=== PATIENT | male | born 1970 | race Caucasian/White ===

== ENCOUNTER 2020-03-19 09:20 | Outpatient (CLI) | payer OTHER, SELFPAY ==
--- NOTE | 2020-03-19 11:00 | NEURO_ITS ---
Patient Number: [id number] Impression: # Complains of numbness of upper extremities. Carries the diagnosis of small fiber neuropathy. 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 # Normal needle/EMG exam. # Clinical correlation recommended. Nerve Conduction Studies Anti Sensory Summary Table Stim Site NR Peak (ms) P-T Amp (?V) Site1 Site2 Delta-P (ms) Dist (cm) Gary (m/s) Left Median Anti Sensory (2-3nd Digit) Wrist 2.6 56.3 Wrist 2-3nd Digit 2.6 14.0 54 Wrist 2.7 57.9 Wrist 2-3nd Digit 2.6 14.0 54 Right Median Anti Sensory (2-3nd Digit) Wrist 2.8 42.2 Wrist 2-3nd Digit 2.8 14.0 50 Wrist 2.9 51.7 Wrist 2-3nd Digit 2.8 14.0 50 Left Radial Anti Sensory (Base 1st Digit) Wrist 2.1 26.5 Wrist Base 1st Digit 2.1 0.0 Right Radial Anti Sensory (Base 1st Digit) Wrist 1.9 17.8 Wrist Base 1st Digit 1.9 0.0 Left Ulnar Anti Sensory (5th Digit) Wrist 2.3 28.6 Wrist 5th Digit 2.3 14.0 61 Right Ulnar Anti Sensory (5th Digit) Wrist 2.4 36.6 Wrist 5th Digit 2.4 14.0 58 Motor Summary Table Stim Site NR Onset (ms) O-P Amp (mV) Site1 Site2 Delta-0 (ms) Dist (cm) Gary (m/s) Left Median Motor (Abd Poll Brev) Wrist 2.5 3.0 Elbow Wrist 4.9 29.0 59 Elbow 7.4 3.8 Right Median Motor (Abd Poll Brev) Wrist 2.8 3.0 Elbow Wrist 4.5 27.0 60 Elbow 7.3 3.2 Left Ulnar Motor (Abd Dig Minimi) Wrist 2.7 7.5 A Elbow Wrist 4.8 28.0 58 A Elbow 7.5 5.9 Right Ulnar Motor (Abd Dig Minimi) Wrist 3.0 3.8 A Elbow Wrist 5.4 28.0 52 A Elbow 8.4 3.2 B Elbow Wrist 3.4 18.0 53 B Elbow 6.4 4.3 F Wave Studies NR F-Lat (ms) L-R F-Lat (ms) Left Median (Mrkrs) (Abd Poll Brev) 26.20 0.47 Right Median (Mrkrs) (Abd Poll Brev) 26.67 0.47 Left Ulnar (Mrkrs) (Abd Dig Min) 27.15 0.22 Right Ulnar (Mrkrs) (Abd Dig Min) 26.93 0.22 EMG Side Muscle Nerve Root Ins Act Fibs Amp Dur Recrt Comment Right 1stDorInt Ulnar C8-T1 Nml Nml Nml Nml Nml Right Ext Indicis Radial (Post Int) C7-8 Nml Nml Nml Nml Nml Right Ext Digitorum Radial (Post Int) C7-8 Nml Nml Nml Nml Nml Right BrachioRad Radial C5-6 Nml Nml Nml Nml Nml Right PronatorTeres Median C6-7 Nml Nml Nml Nml Nml Right Abd Poll Brev Median C8-T1 Nml Nml Nml Nml Nml Left 1stDorInt Ulnar C8-T1 Nml Nml Nml Nml Nml Left Ext Indicis Radial (Post Int) C7-8 Nml Nml Nml Nml Nml Left Ext Digitorum Radial (Post Int) C7-8 Nml Nml Nml Nml Nml Left BrachioRad Radial C5-6 Nml Nml Nml Nml Nml Left PronatorTeres Median C6-7 Nml Nml Nml Nml Nml Left Abd Poll Brev Median C8-T1 Nml Nml Nml Nml Nml Right ABD Dig Min Ulnar C8-T1 Nml Nml Nml Nml Nml Left ABD Dig Min Ulnar C8-T1 Nml Nml Nml Nml Nml MTDD
== END 2020-03-19 09:21 | disposition home or self-care (01) ==
LOC: ANHNEURO 09:21
PROVIDERS: PCP Emergency Medicine; Visit Provider Emergency Medicine
DX: G62.9 Polyneuropathy, unspecified (principal); G56.21 Lesion of ulnar nerve, right upper limb
CPT/HCPCS: 95886; 95911

== ENCOUNTER 2021-11-24 00:25 | Day surgery (SDC) | payer OTHER, SELFPAY ==
[2021-11-11 13:43] VITALS: BMI 32.2
[2021-11-24] MEDS: LACTATED RINGERS 1,000 ML 150 ML IV CONT (07:59)
--- NOTE | 2021-11-24 08:08 | WPDANESEPPF ---
Anes - Initial Pre Proc Eval Procedure: Operation Date: 11/24/21 09:00 Proposed Procedures p Screening Colonoscopy - Elroy Brambila MD Date/Time: 11/24/21 08:08 Surgeon: Elroy Brambila MD Pre Op Diagnosis: neoplasm screening Patient Data Age: 51 Gender: M Height: 1.68 m Weight: 91.2 kg Allergies Allergy/AdvReac Type Severity Reaction Status Date / Time No Known Allergies Allergy Verified 11/24/21 07:46 Home Medications Medication Instructions Recorded Confirmed Type pregabalin 300 mg capsule 300 mg PO BID #60 cap 06/02/21 11/24/21 Rx Patient hx anesthesia problems: none Family hx anesthesia problems: none Results Review: All pre-operative results and documents have been reviewed as part of the pre-operative evaluation. [facility] Past Medical History Medical History Arthritis Broken collarbone Chicken pox Claustrophobia Colon cancer screening Diarrhea Hernia Meningitis Neuropathy Urinary frequency Vertigo Wears glasses Surgical History Surgical History H/O elbow surgery History of neck surgery S/P hernia surgery Family History Family History Other Arthritis Brain cancer Cerebrovascular accident Diabetes mellitus Family history of cardiovascular disease High cholesterol Hypertension Social History Social History Smoking status: Never smoker Alcohol intake: never Substance use type: does not use Living arrangements: alone Spiritual care concerns: No Anes - Eval Final PreProcedure Day of Procedure 11/24/21 08:08 Patient weight: obese Heart: regular rate and rhythm Lungs: clear to auscultation Airway: Mallampati scale class II Neurological: alert and oriented Last oral intake: >/= 8 hours ASA classification: II Emergent: no Anesthetic plan: proceed Anesthesia type and monitoring: general GIVS and standard monitoring Results Review: All pre-operative results and documents have been reviewed as part of the pre-operative evaluation. Informed Consent: The patient's anesthetic plan and its attendant risks and benefits were discussed with the patient/family/POA. Questions were solicited and answers provided to the satisfaction of the patient/family/POA.
--- NOTE | 2021-11-24 08:55 | PM.HPGS ---
History of Present Illness History of Present Illness Consent: Risks, benefits, and alternatives have been discussed and questions answered. Patient agrees to proceed with procedure. Chief complaint: neoplasm screening Narrative: Juan Alberto Mays is a 51 year old male here for first screening colonoscopy Review of Systems Constitutional: Constitutional: Denies headache(s) and Denies weakness Eyes: Eyes: Denies blurry vision ENT: Reports Normal hearing present, Denies headache(s) and Denies neck pain Cardiovascular: Cardiovascular: Denies chest pain and Denies dyspnea Respiratory: Respiratory: Denies dyspnea Gastrointestinal: Gastrointestinal: Reports no additional gastrointestinal complaints Genitourinary: Genitourinary: Denies dysuria Musculoskeletal: Musculoskeletal: Denies neck pain Integumentary/Breasts: Skin/Breast: Denies dry skin Neurologic: Reports Normal hearing present, Denies headache(s) and Denies weakness Psychiatric: Psychiatric: Denies anxiety Endocrine: Endocrine: Denies change in body appearance Hematologic/Lymphatic: Hematologic/Lymphatic: Denies easy bleeding Allergic/Immunologic: Allergic/Immunologic: Denies urticaria PMFSH Past Medical History Medical History Arthritis Broken collarbone Chicken pox Claustrophobia Colon cancer screening Diarrhea Hernia Meningitis Neuropathy Urinary frequency Vertigo Wears glasses Surgical History Surgical History H/O elbow surgery History of neck surgery S/P hernia surgery Family History Family History Other Arthritis Brain cancer Cerebrovascular accident Diabetes mellitus Family history of cardiovascular disease High cholesterol Hypertension Social History Social History Smoking status: Never smoker Alcohol intake: never Substance use type: does not use Living arrangements: alone Spiritual care concerns: No Meds Home Medications and Allergies Home Medications Medication Instructions Recorded Confirmed Type pregabalin 300 mg capsule 300 mg PO BID #60 cap 06/02/21 11/24/21 Rx Allergies Allergy/AdvReac Type Severity Reaction Status Date / Time No Known Allergies Allergy Verified 11/24/21 07:46 Exam Const: General: comfortable and no acute distress HENMT: General nose exam: Normal nares present Eyes: General: appearance normal, both eyes and all related structures Neck: Neck: no JVD Resp: Auscultation: clear to auscultation bilaterally Cardio: Rate: regular rate Rhythm: regular rhythm GI: Inspection: non-distended GI Palp: Yes Soft to palpation Skin: General skin exam: normal color Neuro: General: gait normal Speech: normal speech Extrem: General: normal to inspection Psych: Mental Status: mental status grossly normal Assessment and Plan Assessment and plan (1) Colon cancer screening: Code(s): Z12.11 - Encounter for screening for malignant neoplasm of colon Status: Acute Assessment and Plan: colonoscopy
[2021-11-24 09:21] VITALS: BP 122/77; PULSE 71; RESP 20; O2SAT 93
[2021-11-24 09:31] VITALS: BP 112/79; PULSE 65; RESP 30; O2SAT 98
[2021-11-24 09:41] VITALS: BP 121/79; PULSE 62; RESP 17; O2SAT 99
== END 2021-11-24 10:03 | disposition home or self-care (01) ==
PROVIDERS: PCP Emergency Medicine; Visit Provider Internal Medicine Gastroenterology
PROC: 0DJD8ZZ Inspection of Lower Intestinal Tract, Via Natural or Artificial Opening Endoscopic (ICD-10-PCS; CPT 45378; principal; 2021-11-24 09:00)
DX: Z12.11 Encounter for screening for malignant neoplasm of colon (principal); K62.1 Rectal polyp; K57.30 Diverticulosis of large intestine without perforation or abscess without bleeding; K64.8 Other hemorrhoids; M19.90 Unspecified osteoarthritis, unspecified site; G62.9 Polyneuropathy, unspecified; E66.9 Obesity, unspecified; Z68.32 Body mass index [BMI] 32.0-32.9, adult
CPT/HCPCS: 45385; 88305; J2704; J7120

== ENCOUNTER 2022-07-03 08:15 | Outpatient (CLI) | payer OTHER, SELFPAY ==
[2022-07-03 08:50] LABS: LDL Cholesterol Direct 109 mg/dL
[2022-07-03 08:53] LABS: Alanine Aminotransferase 46 U/L (6-50); Albumin Level 4.4 g/dL (3.5-5.1); Alkaline Phosphatase 75 U/L (38-126); Anion Gap 8 mmol/L (8-16); Aspartate Amino Transferase 34 U/L (17-59); Bilirubin,Total 0.6 mg/dL (0.2-1.3); Blood Urea Nitrogen 17 mg/dL (9-20); Calcium 8.6 mg/dL (8.4-10.2); Carbon Dioxide 24 mmol/L (22-30); Chloride 107 mmol/L (98-107); Cholesterol 182 mg/dL (0-200); Estimated Glomerular Filt Rate > 60; Glucose 103 mg/dL (65-110); HDL Direct 30 mg/dL; Potassium 4.1 mmol/L (3.4-5.0); Sodium 139 mmol/L (137-145); Triglycerides 374 mg/dL (<150)
[2022-07-03 09:08] LABS: Prostate Specific Antigen 0.7 ng/mL (< OR = 4.0)
== END 2022-07-03 08:16 | disposition home or self-care (01) ==
PROVIDERS: PCP Emergency Medicine; Visit Provider Emergency Medicine
DX: E78.5 Hyperlipidemia, unspecified (principal); Z12.5 Encounter for screening for malignant neoplasm of prostate
CPT/HCPCS: 36415; 80053; 80061; 84153; G0103

== ENCOUNTER 2023-02-23 08:01 | Emergency (ER) | payer OTHER, SELFPAY ==
[2023-02-23 08:18] VITALS: BP 128/76; PULSE 88; RESP 18; TEMP 36.9; O2SAT 99
--- NOTE | 2023-02-23 08:31 | ED.URI ---
HPI - URI/Sore Throat General Chief Complaint: Upper Respiratory Infection Stated Complaint: cold symptoms Time Seen by Provider: 02/23/23 08:22 Source: patient and RN notes reviewed Mode of arrival: ambulatory Limitations: no limitations History of Present Illness HPI Narrative: Presents today with a 4 day history of cough, congestion, headache, sore, left ear clogging. Denies fever. He has been taking NyQuil and cough medicine without much relief. Denies history of asthma or COPD. He does have history of seasonal allergies, but does not currently take anything for them. He is a nonsmoker. Related Data Allergies Allergy/AdvReac Type Severity Reaction Status Date / Time No Known Allergies Allergy Verified 02/23/23 08:17 Review of Systems Review of Systems: CONSTITUTIONAL: Denies body aches, fever, chills, or sweats. EYES: Denies visual changes, redness, or discharge. ENT: Denies rhinorrhea. + congestion, sore throat, left ear clogging CARDIOVASCULAR: Denies chest pain, palpitations, or edema. RESPIRATORY: Denies dyspnea.+ cough GASTROINTESTINAL: Denies abdominal pain, nausea, vomiting, or diarrhea. GENITOURINARY: Denies dysuria or hematuria. SKIN: Denies rash, itching, or wounds. MUSCULOSKELETAL: Denies back pain, joint pain, or myalgia. NEUROLOGIC: Denies numbness, tingling, or weakness.+ headache PSYCH: Denies depression or anxiety. [facility] Past Medical History Medical History Arthritis Broken collarbone Chicken pox Claustrophobia Colon cancer screening Diarrhea Hernia Meningitis Neuropathy Urinary frequency Vertigo Wears glasses Surgical History Surgical History H/O elbow surgery History of neck surgery History of ventral hernia repair 01/2017- Ventral hernia repair with Parietex mesh Family History Family History Other Arthritis Brain cancer Cerebrovascular accident Diabetes mellitus Family history of cardiovascular disease High cholesterol Hypertension Social History Social History Smoking status: Never smoker Alcohol intake: never Substance use type: does not use Living arrangements: with family Occupation/Education: occupation 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 Please see nursing chart for further information. There is no relevant family history pertinent to the presenting complaint Exam Narrative: GENERAL: Well-appearing, well-nourished, and in no acute distress. HEAD: Normocephalic, atraumatic. EYES: EOMI. No redness or drainage. Conjunctivae normal. ENT: Mucous membranes pink and moist. Nares congested. No rhinorrhea. Right ear with serous effusion. Left TM erythematous and bulging with purulent material. Throat normal. Uvula midline. NECK: Normal AROM. Supple. No lymphadenopathy. CHEST: No respiratory distress. Clear to auscultation. Harsh cough noted HEART: Regular rate and rhythm. No murmur appreciated. Normal peripheral pulses. EXTREMITIES: Normal range of motion. No edema. SKIN: Warm, dry, no rash. Capillary refill normal. Normal skin turgor. NEURO: No focal deficits. Alert and oriented x3. Gait steady. PSYCH: Normal affect. No signs of depression or anxiety. Course Course Level of Care: Express Care Visit Vital Signs Vital signs: Vital Signs Temperature 98.5 F 02/23/23 08:18 Pulse Rate 88 02/23/23 08:18 Respiratory Rate 18 02/23/23 08:18 Blood Pressure 128/76 02/23/23 08:18 Pulse Oximetry 99 02/23/23 08:18 Oxygen Delivery Room Air 02/23/23 08:18 Temperature 98.5 F
== END 2023-02-23 08:41 | disposition home or self-care (01) ==
PROVIDERS: Emergency Provider Nurse Practitioner; PCP Emergency Medicine
DX: J40 Bronchitis, not specified as acute or chronic (principal); J06.9 Acute upper respiratory infection, unspecified; H66.002 Acute suppurative otitis media without spontaneous rupture of ear drum, left ear; M19.90 Unspecified osteoarthritis, unspecified site; Z09 Encounter for follow-up examination after completed treatment for conditions other than malignant neoplasm; Z86.61 Personal history of infections of the central nervous system
CPT/HCPCS: 99213; G0463

== ENCOUNTER 2023-09-22 07:37 | Emergency (ER) | payer OTHER, SELFPAY ==
[2023-09-22] VITALS (16 sets, daily range): BP systolic 121–151; BP diastolic 69–100; PULSE 63–73; RESP 12–19; TEMP 36.2; O2SAT 95–100
--- NOTE | ~2023-09-22 | CT_ITS ---
EXAMINATION: CT abdomen pelvis wo con DATE: 09/22/2023 10:31 INDICATION: Left flank pain and hematuria TECHNIQUE: Computed tomography (CT) of the abdomen and pelvis was performed without intravenous contr ast. The dose-length product was 365.79 mGy-cm. Automated exposure control and iterative reconstructi on technique were employed. COMPARISON: CT dated 01/12/2012 FINDINGS: There is dependent atelectasis. Heart size normal. No significant vascular abnormality. No lymphadenopathy. Fatty infiltration of the liver. Nonobstructing bilateral renal stones. There is a 3 mm distal left ureteral stone with mild hydronephrosis. Colonic diverticulosis without evidence for diverticulitis. Nonobstructive bowel gas pattern. No abnormal pelvic masses or fluid collections. No free air or free fluid. IMPRESSION: 1. Distal left ureteral stone just proximal to the UVJ measuring 3 mm. Mild left hydronephrosis. 2: Nonobstructing bilateral nephrolithiasis. 3: Fatty infiltration of the liver. Reviewed, dictated and finalized at location L. [facility] IMPRESSION: 1. Distal left ureteral stone just proximal to the UVJ measuring 3 mm. Mild lef t hydronephrosis. 2: Nonobstructing bilateral nephrolithiasis. 3: Fatty infiltration of the liver.
--- NOTE | 2023-09-22 08:33 | ED.GENADULT ---
HPI - General Adult General Chief complaint: Urogenital-Male Stated complaint: penile burning/abd pain/nausea Time Seen by Provider: 09/22/23 07:53 History of Present Illness HPI narrative: 53-year-old male with history of kidney stone approximately 8 years ago on the right present to the emergency department for evaluation of left-sided flank pain that radiates to his left lower quadrant and to his scrotum. Patient states the pain started this morning. Patient does report associated nausea. Patient states the pain does feel similar to his previous kidney stone. Related Data Allergies Allergy/AdvReac Type Severity Reaction Status Date / Time No Known Allergies Allergy Verified 03/02/23 16:03 Review of Systems Review of Systems: All systems reviewed & are unremarkable except as noted in HPI and below PMFSH Past Medical History Medical History Arthritis Broken collarbone Chicken pox Claustrophobia Colon cancer screening Diarrhea Hernia Meningitis Neuropathy Urinary frequency Vertigo Wears glasses Surgical History Surgical History H/O elbow surgery History of neck surgery History of ventral hernia repair 01/2017- Ventral hernia repair with Parietex mesh Family History Family History Other Arthritis Brain cancer Cerebrovascular accident Diabetes mellitus Family history of cardiovascular disease High cholesterol Hypertension Social History Social History (Updated 03/02/23 @ 16:23 by Hanna Guzman MA) Smoking status: Never smoker Alcohol intake: never Substance use type: does not use Lack of Transportation: No Lack of Food: Never True Current Housing: I Have Housing Concerned About Future Housing: No Difficulty Paying Gas/Electric Bills: No Difficulty Paying for Meds: No Currently Unemployed: No Education: Master's Degree or Higher Difficulty w/ Childcare or Family Care: No Living arrangements: with family Occupation/Education: occupation 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 HEAD: normocephalic, atraumatic. EYES: PERRLA/EOMI, conjunctivae clear. NOSE: Normal no drainage EARS:TMS clear with good light reflex. THROAT: Pharynx clear, no exudate. NECK: Supple. No adenopathy, no masses. RESPIRATORY: Airway patent, respirations nonlabored. Clear to auscultation bilaterally, no rales, rhonchi, wheezing. CARDIOVASCULAR: Regular rate and rhythm without murmurs rubs or gallops. ABDOMINAL: Soft, nontender, nondistended, normal bowel sounds MUSCULOSKELETAL: Moves all extremities. Strength/ROM intact, No edema, No calf tenderness. NEURO: Alert. Cranial nerves II through XII intact. Grossly intact SKIN: Warm, dry. Normal Color Course Course Emergency Course: 53-year-old male presenting ED for evaluation of left-sided flank pain. Patient is afebrile with no leukocytosis stable hemoglobin of 16.1. No significant abnormalities on his CMP UA did show evidence of hematuria with greater than [address] scan was ordered to evaluate for ureteral calculi and patient does have a 3 mm ureteral calculi just proximal to the UVJ. On re-evaluation patient does feel improved. Patient was updated on the plan for treatment for home and reports a close follow-up with primary care physician and with Urology. Patient was also educated on reasons to return to the emergency department. All questions concerns were addressed patient was well-appearing at time of discharge. Vital Signs Vital signs: Vital Signs Temperature 97.2 F L 09/22/23 07:41 Pulse Rate 71 09/22/23 07:41 Respiratory Rate 16 09/22/23 07:41 Blood Pressure 121/84 09/22/23 07:41
[2023-09-22 08:44] LABS: Basophils Absolute Auto 0.1 K/mm3 (0.0-0.1); Basophils Percent Auto 0.8 % (0.2-1.2); Eosinophils Absolute Auto 0.3 K/mm3 (0-0.3); Hematocrit 44.6 % (42.0-52.0); Hemoglobin 16.1 g/dL (14.0-18.0); Immature Granulocyte Absolute 0.06 K/mm3 (0.00-0.031); Immature Granulocyte Percent A 0.8 % (0-0.5); Lymphocytes Absolute Auto 2.04 K/mm3 (0.9-3.2); Lymphocytes Percent Auto 28.3 % (18.3-44.2); Mean Corpuscular HGB Conc 36.1 g/dl (32-36); Mean Corpuscular Hemoglobin 31.6 pg (26-34); Mean Corpuscular Volume 87.5 fl (80-100); Mean Platelet Volume 8.6 fl (7.4-10.4); Monocytes Absolute Auto 0.7 K/mm3 (0.1-0.6); Monocytes Percent Auto 9.1 % (2.6-8.5); Neutrophils Absolute Auto 4.1 K/mm3 (1.3-6.7); Platelet Count Result 170 k/mm3 (150-375); Red Cell Distribution Width 13.1 % (11.5-14.5); White Blood Count 7.2 K/mm3 (4.5-10.0)
[2023-09-22] MEDS: SODIUM CHLORIDE 0.9% IV 1,000 ML 999 ML IV CONT (08:47)
[2023-09-22] MEDS: ONDANSETRON INJ 4 MG/2 ML VIAL IV PUSH (08:47)
[2023-09-22] MEDS: HYDROmorphone HCL INJ (*CRX) 1 MG/ML SYR 0.5 MG IV PUSH (08:48)
[2023-09-22 08:59] LABS: Alanine Aminotransferase 46 U/L (6-50); Albumin Level 4.4 g/dL (3.5-5.1); Alkaline Phosphatase 73 U/L (38-126); Anion Gap 9 mmol/L (8-16); Aspartate Amino Transferase 35 U/L (17-59); Bilirubin,Total 0.7 mg/dL (0.2-1.3); Blood Urea Nitrogen 20 mg/dL (9-20); Calcium 9.5 mg/dL (8.4-10.2); Carbon Dioxide 27 mmol/L (22-30); Chloride 105 mmol/L (98-107); Estimated CRCL calculation 112 ml/min; Estimated Glomerular Filt Rate > 60; Glucose 114 mg/dL (65-110); Potassium 4.4 mmol/L (3.4-5.0); Sodium 141 mmol/L (137-145)
[2023-09-22 09:53] LABS: Appearance Urine Clear (Clear); Bacteria Urine None Seen /hpf; Bilirubin Urine Negative (Negative); Blood Urine 3+ (Negative); Color Urine Yellow (Yellow); Glucose Urine UA Negative (Negative); Ketones Urine Negative (Negative); Leukocyte Esterase Ur Negative LEU/UL (Negative); Nitrate Urine Negative (Negative); Non Pathogenic Casts 0-2; Protein Urine Negative (Negative); RBC Urine >100 /hpf (0-2); Specific Grav Ur 1.019 (1.001-1.035); Squamous Epithelial Cell Urine None seen /hpf (Few); WBC Urine 0-5 /hpf; pH Urine 6.5 (5.0-9.0)
[2023-09-22 10:08] LABS: Add Urine Microscopic? YES
[2023-09-22] MEDS: TAMSULOSIN HCL 0.4 MG CAPSULE PO (11:05)
[2023-09-22] MEDS: KETOROLAC 15 MG/ML VIAL (*BKC) IV PUSH (11:25)
== END 2023-09-22 11:32 | disposition home or self-care (01) ==
PROVIDERS: Emergency Provider Emergency Medicine; PCP Emergency Medicine
DX: N13.2 Hydronephrosis with renal and ureteral calculous obstruction (principal); M19.90 Unspecified osteoarthritis, unspecified site; G62.9 Polyneuropathy, unspecified; K76.0 Fatty (change of) liver, not elsewhere classified
CPT/HCPCS: 36415; 74176; 80053; 81001; 85025; 96361; 96374; 96375; 99284; A9270; J1170; J1885; J2405; J7030

== ENCOUNTER 2024-01-23 11:07 | Emergency (ER) | payer OTHER, SELFPAY ==
--- NOTE | ~2024-01-23 | XR_ITS ---
EXAMINATION: XR chest 2V 01/23/2024 12:44 INDICATION: Chest pain PROCEDURE: 2 view chest COMPARISON: 08/16/2013 FINDINGS: The lungs are clear. The cardiomediastinal silhouette is within normal limits. There are no pleural effusions. There is no pneumothorax suspected. IMPRESSION: 1: NO ACUTE CARDIOPULMONARY DISEASE. Reviewed, dictated and finalized at location B.
[2024-01-23 11:19] VITALS: BP 131/89; PULSE 81; RESP 18; TEMP 36.2; O2SAT 99
--- NOTE | 2024-01-23 11:53 | ECG_ITS ---
SEE SCANNED COPY FOR CONFIRMED REPORT. MTDD
[2024-01-23 12:05] LABS: Basophils Absolute Auto 0.1 K/mm3 (0.0-0.1); Basophils Percent Auto 0.7 % (0.2-1.2); Eosinophils Absolute Auto 0.2 K/mm3 (0-0.3); Eosinophils Percent Auto 2.3 % (0-4.4); Hematocrit 46.7 % (42.0-52.0); Hemoglobin 16.6 g/dL (14.0-18.0); Immature Granulocyte Absolute 0.06 K/mm3 (0.00-0.031); Immature Granulocyte Percent A 0.7 % (0-0.5); Lymphocytes Absolute Auto 2.34 K/mm3 (0.9-3.2); Lymphocytes Percent Auto 26.7 % (18.3-44.2); Mean Corpuscular HGB Conc 35.5 g/dl (32-36); Mean Corpuscular Hemoglobin 31.6 pg (26-34); Mean Platelet Volume 8.5 fl (7.4-10.4); Monocytes Absolute Auto 0.8 K/mm3 (0.1-0.6); Monocytes Percent Auto 8.9 % (2.6-8.5); Neutrophils Absolute Auto 5.3 K/mm3 (1.3-6.7); Neutrophils Percent Auto 60.7 % (45.5-73.1); Platelet Count Result 180 k/mm3 (150-375); Red Blood Count 5.25 M/mm3 (4.6-6.20); Red Cell Distribution Width 13.2 % (11.5-14.5); White Blood Count 8.8 K/mm3 (4.5-10.0)
[2024-01-23 12:18] LABS: Alanine Aminotransferase 49 U/L (6-50); Albumin Level 4.5 g/dL (3.5-5.1); Alkaline Phosphatase 77 U/L (38-126); Anion Gap 6 mmol/L (4-12); Aspartate Amino Transferase 35 U/L (17-59); Bilirubin,Total 0.8 mg/dL (0.2-1.3); Blood Urea Nitrogen 20 mg/dL (9-20); Calcium 9.6 mg/dL (8.4-10.2); Carbon Dioxide 25 mmol/L (22-30); Chloride 107 mmol/L (98-107); Estimated CRCL calculation 114 ml/min; Estimated Glomerular Filt Rate > 60; Glucose 96 mg/dL (65-110); Lipase 76 U/L (23-300); Sodium 138 mmol/L (137-145)
[2024-01-23 12:22] LABS: INR 0.9; Prothrombin Time 12.8 Seconds (11.1-14.7)
[2024-01-23 12:23] LABS: Partial Thromboplastin Time 29.6 Seconds (22.3-36.8)
[2024-01-23 12:37] LABS: Troponin I < 0.012 ng/mL (0.000-0.034)
[2024-01-23 14:41] VITALS: BP 114/83; PULSE 67; RESP 12; TEMP 36.4; O2SAT 100
[2024-01-23 14:43] VITALS: O2SAT 97
[2024-01-23 14:47] VITALS: PULSE 69
--- NOTE | 2024-01-23 14:53 | ECG_ITS ---
SEE SCANNED COPY FOR CONFIRMED REPORT. MTDD
[2024-01-23 15:22] LABS: Troponin I < 0.012 ng/mL (0.000-0.034)
[2024-01-23 15:31] VITALS: BP 124/86; PULSE 74; RESP 14; O2SAT 97
[2024-01-23] MEDS: ASPIRIN 81 MG CHEWABLE TABLET 324 MG PO (15:31)
--- NOTE | 2024-01-23 15:41 | ED.CHESTPAIN ---
HPI - Chest Pain General Chief Complaint: Chest Pain Stated Complaint: chest pain Time Seen by Provider: 01/23/24 14:34 History of Present Illness HPI narrative: 53-year-old male present to the emergency department for evaluation chest pressure. Patient states that last night he was having some episodes of chest pressure and this persisted through the day today. Patient fell pressure developed into chest pain while he was EN route to the emergency department. Patient suspects his last stress test was approximately 10 years ago. Patient denies any prior history of IN. Patient denies any history of PE DVT, patient is not on any home placement therapy patient denies any prior history of cancer. patient denies any prior history of hypertension, high cholesterol or diabetes. Related Data Allergies Allergy/AdvReac Type Severity Reaction Status Date / Time No Known Allergies Allergy Verified 01/23/24 14:40 Review of Systems Review of Systems: All systems reviewed & are unremarkable except as noted in HPI and below PMFSH Past Medical History Medical History Arthritis Broken collarbone Chicken pox Claustrophobia Colon cancer screening Diarrhea Hernia Meningitis Neuropathy Urinary frequency Vertigo Wears glasses Surgical History Surgical History H/O elbow surgery History of neck surgery History of ventral hernia repair 01/2017- Ventral hernia repair with Parietex mesh Family History Family History Other Arthritis Brain cancer Cerebrovascular accident Diabetes mellitus Family history of cardiovascular disease High cholesterol Hypertension Social History Social History (Updated 03/02/23 @ 16:23 by Hanna Guzman MA) Smoking status: Never smoker Alcohol intake: never Substance use type: does not use Lack of Transportation: No Lack of Food: Never True Current Housing: I Have Housing Concerned About Future Housing: No Difficulty Paying Gas/Electric Bills: No Difficulty Paying for Meds: No Currently Unemployed: No Education: Master's Degree or Higher Difficulty w/ Childcare or Family Care: No Living arrangements: with family Occupation/Education: occupation 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 HEAD: normocephalic, atraumatic. EYES: PERRLA/EOMI, conjunctivae clear. NOSE: Normal no drainage EARS:TMS clear with good light reflex. THROAT: Pharynx clear, no exudate. NECK: Supple. No adenopathy, no masses. RESPIRATORY: Airway patent, respirations nonlabored. Clear to auscultation bilaterally, no rales, rhonchi, wheezing. CARDIOVASCULAR: Regular rate and rhythm without murmurs rubs or gallops. ABDOMINAL: Soft, nontender, nondistended, normal bowel sounds MUSCULOSKELETAL: Moves all extremities. Strength/ROM intact, No edema, No calf tenderness. No reproducible chest wall tenderness to palpation NEURO: Alert. Cranial nerves II through XII intact. Good gait. Good coordination SKIN: Warm, dry. Normal Color Course Vital Signs Vital signs: Vital Signs Temperature 97.1 F L 01/23/24 11:19 Pulse Rate 81 01/23/24 11:19 Respiratory Rate 18 01/23/24 11:19 Blood Pressure 131/89 01/23/24 11:19 Pulse Oximetry 99 01/23/24 11:19 Oxygen Delivery Room Air 01/23/24 11:19 Temperature 97.8 F 01/23/24 17:15 Pulse Rate 75 01/23/24 17:15 Respiratory Rate 16 01/23/24 17:15 Blood Pressure 124/88 01/23/24 17:15 Pulse Oximetry 95 01/23/24 17:15 Oxygen Delivery Room Air 01/23/24 14:43 MDM - Chest Pain MDM Narrative Medical decision making narrative: 53-year-old male presenting to the ED for evaluation bilateral chest
[2024-01-23 16:02] LABS: D Dimer < 0.27 ug/mL (<0.48)
[2024-01-23] MEDS: BELLADONNA ALK/PHENOB ELIX 10 ML, MAG HYDROX/ALUMINUM HYD/SIMETH 30 ML, LIDOCAINE HCL 2... PO (16:50)
[2024-01-23] MEDS: KETOROLAC 15 MG/ML VIAL (*BKC) IV PUSH (16:52)
[2024-01-23 17:15] VITALS: BP 124/88; PULSE 75; RESP 16; TEMP 36.6; O2SAT 95
== END 2024-01-23 17:15 | disposition home or self-care (01) ==
PROVIDERS: Student in an Organized Health Care Education/Training Program; Emergency Provider Emergency Medicine; PCP Emergency Medicine
DX: R07.89 Other chest pain (principal); M19.90 Unspecified osteoarthritis, unspecified site; G62.9 Polyneuropathy, unspecified
CPT/HCPCS: 36415; 71046; 80053; 83690; 84484; 85025; 85380; 85610; 85730; 93005; 96374; 99284; A9270; J1885

== ENCOUNTER 2024-05-15 08:17 | Outpatient (CLI) | payer OTHER, SELFPAY ==
[2024-05-15 08:46] LABS: Alanine Aminotransferase 34 U/L (6-50); Albumin Level 4.1 g/dL (3.5-5.1); Alkaline Phosphatase 67 U/L (38-126); Anion Gap 8 mmol/L (4-12); Aspartate Amino Transferase 29 U/L (17-59); Bilirubin,Total 0.9 mg/dL (0.2-1.3); Blood Urea Nitrogen 19 mg/dL (9-20); Calcium 9.1 mg/dL (8.4-10.2); Carbon Dioxide 28 mmol/L (22-30); Chloride 104 mmol/L (98-107); Cholesterol 170 mg/dL (0-200); Estimated Glomerular Filt Rate > 60; Glucose 107 mg/dL (65-110); HDL Direct 32 mg/dL; Potassium 4.1 mmol/L (3.4-5.0); Sodium 140 mmol/L (137-145); Triglycerides 231 mg/dL (<150)
[2024-05-15 08:57] LABS: LDL Cholesterol Direct 112 mg/dL
[2024-05-15 09:16] LABS: Prostate Specific Antigen 0.6 ng/mL (< OR = 4.0)
[2024-05-15 10:30] LABS: Vitamin D 25 Hydroxy 20.7 ng/mL
== END 2024-05-15 08:18 | disposition home or self-care (01) ==
LOC: ANHLAB 08:18
PROVIDERS: PCP Emergency Medicine; Visit Provider Emergency Medicine
DX: E78.5 Hyperlipidemia, unspecified (principal); E55.9 Vitamin D deficiency, unspecified; Z12.5 Encounter for screening for malignant neoplasm of prostate
CPT/HCPCS: 36415; 80053; 80061; 82306; 84153; G0103

== ENCOUNTER 2024-06-09 11:13 | Outpatient (CLI) | payer OTHER, SELFPAY ==
--- NOTE | ~2024-06-09 | XR_ITS ---
EXAMINATION: XR lumbar spine 2-3V DATE: 06/09/2024 11:31 INDICATION: Low back and right hip pain TECHNIQUE: Anteroposterior and lateral views of the lumbar spine, and cone-down lateral view of the l umbosacral junction were obtained. COMPARISON: 01/12/2012 FINDINGS: 8 degrees lumbar dextrocurvature. Sagittal alignment is normal. Lumbar vertebral body heights are nor mal. Lumbar disc heights are normal with very small degenerative endplate osteophytes. There is mild disc height loss at T9-T10 and T11-T12. Mild lumbar facet osteoarthritis. Sacrum and bilateral sacral ized joints are unremarkable. Normal bowel gas pattern. IMPRESSION: 1. 8 degrees lumbar dextrocurvature with minimal spondylosis. Reviewed, dictated and finalized at location A.
== END 2024-06-09 11:14 | disposition home or self-care (01) ==
LOC: ANHIMG 11:14
PROVIDERS: PCP Emergency Medicine; Visit Provider Emergency Medicine
DX: M41.86 Other forms of scoliosis, lumbar region (principal); M54.50 Low back pain, unspecified; M25.551 Pain in right hip
CPT/HCPCS: 72100

== ENCOUNTER 2024-08-16 08:01 | Emergency (ER) | payer OTHER, SELFPAY ==
--- NOTE | 2024-08-16 08:08 | ED_ITS ---
HPI - Wound/Laceration General Stated Complaint: Lower chemical Burn Time Seen by Provider: 08/16/24 08:08 Source: patient Mode of arrival: ambulatory Limitations: no limitations History of Present Illness HPI narrative: Patient is a 54-year-old male who presents with redness and burning to scrotum. Patient states at 3:00 a.m. he woke up with a burning sensation. 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 Patient put neosporin on and ice. Denies any swelling, open wounds Related Data Home Medications Medication Instructions Recorded Confirmed temazepam 15 mg capsule 15 mg PO QHS 05/21/24 08/16/24 Allergies Allergy/AdvReac Type Severity Reaction Status Date / Time No Known Allergies Allergy Verified 08/16/24 08:30 Review of Systems Review of Systems: All systems reviewed & are unremarkable except as noted in HPI and below Constitutional: Constitutional: Denies body ache(s), Denies chills, Denies fatigue, Denies fever(s), Denies headache(s), Denies malaise and Denies weakness Eyes: Eyes: Denies blurry vision, Denies irritation and Denies loss of vision ENT: Denies otalgia, Denies headache(s), Denies nasal discharge, Denies sinus pain and Denies sore throat Cardiovascular: Cardiovascular: Denies chest pain, Denies irregular heart rhythm and Denies dyspnea Respiratory: Respiratory: Denies dyspnea Gastrointestinal: Gastrointestinal: Denies abdominal pain, Denies melena, Denies hematochezia, Denies diarrhea, Denies nausea and Denies vomiting Musculoskeletal: Musculoskeletal: Denies back pain, Denies myalgias and Denies arthralgias Integumentary/Breasts: Skin/Breast: Denies pruritus, Reports erythema and Denies rash Neurologic: Denies headache(s), Denies loss of vision and Denies weakness Psychiatric: Psychiatric: Reports no additional psychiatric complaints Endocrine: Endocrine: Denies fatigue PMFSH Past Medical History Medical History Acute suppur left otitis media w/o spontan rupture tympanic membrane Arthritis Broken collarbone Chicken pox Claustrophobia Colon cancer screening Diarrhea Diastasis recti Hernia Idiopathic peripheral neuropathy Meningitis Neuropathy Urinary frequency Ventral hernia without obstruction or gangrene Vertigo Wears glasses Surgical History Surgical History H/O elbow surgery History of neck surgery History of ventral hernia repair 01/2017- Ventral hernia repair with Parietex mesh Family History Family History Other Arthritis Brain cancer Cerebrovascular accident Diabetes mellitus Family history of cardiovascular disease High cholesterol Hypertension Social History Social History Smoking status: Never smoker Alcohol intake: never Substance use type: does not use Do You Feel Safe in your Home?: Yes Lack of Transportation: No Lack of Food: Never True Current Housing: I Have Housing Concerned About Future Housing: No Difficulty Paying Gas/Electric Bills: No Difficulty Paying for Meds: No Currently Unemployed: No Education: Master's Degree or Higher Difficulty w/ Childcare or Family Care: No Living arrangements: with family Occupation/Education: occupation 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 There is no relevant family history pertinent to the presenting complaint. Exam Const: General: cooperative, healthy appearing, comfortable, no acute distress and well nourished Nutritional Appearance: well nourished Orientation/consciousness: patient oriented x3 Limitations: no limitations HENMT: Head: normal to inspection, normocephalic and atraumatic Ears: hearing grossly normal bilaterally and external ears normal Face/Nose/Sinus: Normal external nose present, normal facial exam and face symmetric Face and sinus: normal facial exam and face symmetric Mouth: Yes lip normal Eyes: General: appearance normal, both eyes and all related structures Alignment and Position: alignment normal and position normal Periorbital: periorbital findings normal Eyelids: eyelids normal Pupils: Equal, round and reactive pupils present EOM: EOMs intact bilaterally Neck: Neck: normal visual inspection, full ROM and supple Chest: Chest palpation & inspection: normal inspection of the chest Resp: Effort & Inspection: normal respiratory effort and able to speak in complete sentences Auscultation: clear to auscultation bilaterally Cardio: Rate: regular rate Rhythm: regular rhythm Heart sounds: S1 normal heart sound present and S2 normal heart sound present GI: Inspection: normal to inspection : Scrotum: no ecchymosis, not edematous, erythematous diffuse, no scrotal swelling and no ulcerations Skin: General skin exam: normal color, no rashes or lesions noted, erythema, no fluctuance, no induration and No lesion Neuro: General: patient oriented x3 and moves all extremities Cranial nerves: Yes Equal, round and reactive pupils present Speech: normal speech Gait exam (Neuro): Normal gait present Extrem: General: normal to inspection, full ROM and no edema Psych: Appearance: grossly normal and well kempt Mental Status: mental status grossly normal Speech and movement: Normal speech and movement present Affect: normal affect Attitude: cooperative Thought process: Normal thought process present Course Course Emergency Course: Patient is aware of diagnosis, understands and agrees to treatment plan. Anticipatory guidance given. Patient agrees to follow-up as directed and is aware of reasons to seek care at the emergency department. Portions of this record may have been created with voice recognition software Level of Care: Express Care Visit Vital Signs Vital signs: Reviewed MDM - Wound/Laceration MDM Narrative Medical decision making narrative: Exam findings show no acute concerns or changes; patient is non-toxic appearing and is in no distress.? Patient is appropriate for outpatient treatment and follow-up. Discharge instructions reviewed with patient, as well as provided in writing per nursing staff. The instructions also include specific and strict return/GO TO THE ER as well as f/u information. All questions have been answered, and the patient deny any further questions with discharge and discharge plan. Differential Diagnosis Differential diagnosis: Likely abrasion and other (Contact dermatitis, chemical burn) Medical Records Attestation: I reviewed the patient's medical records. Discharge Plan Discharge Clinical Impression: Contact dermatitis Qualifiers: Contact dermatitis type: unspecified Contact dermatitis trigger: detergents Qualified Code(s): L24.0 - Irritant contact dermatitis due to detergents Patient Disposition: Home, Self-Care Condition: Stable Instructions: Contact Dermatitis (ED) Additional Instructions: Wash the area with mild soap and cool water only. Soaking in cool water. Use petroleum jelly or Aquaphor and avoid wearing tight underwear. To relieve burning, place a cool washcloth or some ice over the area. Follow up with primary care provider or seek ER if you have significant scrotal swelling, open wounds or severe pain. Prescriptions: No Action temazepam 15 mg capsule 15 mg PO QHS pregabalin [Lyrica] 300 mg capsule 300 mg PO BID Qty: 120 4RF zolpidem [Ambien] 5 mg tablet 5 mg PO QHS PRN (Reason: insomnia) Qty: 30 0RF Follow-up/Referrals: Noah Omalley MD [Primary Care Provider] - 3 Days Stand Alone Forms: Work/School Release IP Time of Disposition: 08:34
[2024-08-16 08:15] VITALS: BP 128/83; PULSE 99; RESP 18; TEMP 36.8; O2SAT 98
== END 2024-08-16 08:38 | disposition home or self-care (01) ==
PROVIDERS: Emergency Provider Nurse Practitioner Family; PCP Emergency Medicine
DX: L24.0 Irritant contact dermatitis due to detergents (principal); M19.90 Unspecified osteoarthritis, unspecified site; G60.9 Hereditary and idiopathic neuropathy, unspecified; Z86.61 Personal history of infections of the central nervous system
CPT/HCPCS: 99213; G0463

== ENCOUNTER 2025-06-03 07:06 | Outpatient (CLI) | payer OTHER, SELFPAY ==
--- NOTE | ~2025-06-03 | MR_ITS ---
EXAMINATION: MR lumbar spine wo con DATE: 06/03/2025 07:40 INDICATION: Low back pain. Right leg pain. TECHNIQUE: Magnetic resonance imaging (MRI) of the lumbar spine was performed without intravenous contrast. COMPARISON: Lumbar spine radiographs 06/09/2024 FINDINGS: There is 3 degrees dextrocurvature lumbar spine. There is mild chronic anterior wedging of T11-L1 vertebral bodies. There are Schmorl's nodes at multiple levels. Intervertebral disc heights are normal. The distal spinal cord signal intensity is normal. The conus medullaris is at T12-L1. The following disc levels are specifically discussed: L1-L2: The disc does not extend beyond the endplate margin. There is mild bilateral facet joint osteoarthritis. There is no neural foraminal stenosis. There is no central canal stenosis. L2-L3: The disc does not extend beyond the endplate margin. There is moderate bilateral facet joint osteoarthritis. There is no neural foraminal stenosis. There is no central canal stenosis. L3-L4: The disc does not extend beyond the endplate margin. There is severe bilateral facet joint osteoarthritis. There is no neural foraminal stenosis. There is no central canal stenosis. L4-L5: The disc does not extend beyond the endplate margin. There is severe bilateral facet joint osteoarthritis. There is no neural foraminal stenosis. There is no central canal stenosis. L5-S1: There is a central protrusion. There is severe bilateral facet joint osteoarthritis. There is mild bilateral neural foraminal stenosis. There is mild central canal stenosis. IMPRESSION: 1. Mild lumbar spondylosis. Reviewed, dictated and finalized at location E. IMPRESSION: 1. Mild lumbar spondylosis.
== END 2025-06-03 07:07 | disposition home or self-care (01) ==
LOC: MICIMG 07:07
PROVIDERS: PCP Emergency Medicine; Visit Provider Emergency Medicine
DX: M54.30 Sciatica, unspecified side (principal); M47.896 Other spondylosis, lumbar region
CPT/HCPCS: 72148

== ENCOUNTER 2025-06-20 08:48 | Outpatient (CLI) | payer OTHER, SELFPAY ==
--- OUTSIDE RECORDS SUMMARY | 2025-06-20 09:02 | XMS_ITS | Clinical Summary ---
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 Active fexofenadine-pse udoephedrine ([facility]) 60-120 MG tablet Take 1 tablet by mouth 2 (two) times daily. 20 tablet 09/13/2018 Active Family History Medical History Relation Comments Hypertension Father Diabetes Mother Hypertension Mother Relation Status Comments Father Mother Social History Tobacco Use Types Packs/Day Years Used Date Smoking Tobacco: Never Smokeless Tobacco: Never Alcohol Use Standard Drinks/Week Comments No 0 (1 standard drink = 0.6 oz pur e alcohol) AUDIT-C Answer Date Recorded Frequency of Alcohol Consumption Never 09/13/2018 Average Number of Drinks Not on file 018 Frequency of Binge Drinking Not on file 08/26 Sex and Gender Information Value Date Recorded Sex Assigned at Not on file 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 Gender Identity Not on file Sexual Orientation Not on file Last Filed Vital Signs Vital Sign Reading Time Taken Comments Blood Pressure 126/81 09/13/2018 8:29 AM WET PAN MIXER Pulse 78 09/13/2018 8:29 AM WET PAN MIXER Temperature 36.5 C (97.7 F) 09/13/2018 8:29 AM WET PAN MIXER Respiratory Rate 20 09/13/2018 8:29 AM WET PAN MIXER Oxygen Saturation 96% 09/13/2018 8:29 AM WET PAN MIXER Inhaled Oxygen Concentration - - Weight 85.7 kg (189 lb) 09/13/2018 8:29 AM WET PAN MIXER Height 167 cm (5' 5.75) 09/13/2018 8:29 AM WET PAN MIXER Body Mass Index 30.74 09/13/2018 8:29 AM WET PAN MIXER Plan of Treatment Health Maintenance Due Date Last Done Comments Colorectal Cancer Screening Colonoscopy (10 Years) 1969 Annual Physical 1972 Hepatitis C 1987 DTaP, Tdap and Td Vaccines ( 1 - Tdap) 1988 Hepatitis B Vaccines (1 of 3 - 19+ 3-dose series) 1988 Pneumococcal Vaccine: 50+ Ye ars (1 of 1 - PCV) 2019 Zoster Vaccines (1 of 2) 2019 COVID-19 Vaccine (1 - 2023-2 5 season) 2025 Meningococcal B Vaccine Aged Out No l onger eligible based on patient's age to complete this topic Meningococcal Vaccine Aged Out No krista shira eligible based on patient's age to complete this topic RSV Immunizations Under 20 Months Aged Out No longer eligible based on patient's age to complete this topic Insurance Care Teams Cooler Worker Relationship Specialty Start Date End Date New Referring, Provider PCP - General UNKNOWN PHYSICIAN SPECIALTY 09/13/18
--- OUTSIDE RECORDS SUMMARY | 2025-06-20 09:02 | XMS_ITS | Clinical Summary ---
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 Gender Identity Not on file Sexual Orientation Not on file Plan of Treatment Health Maintenance Due Date Last Done Comments Hepatitis C Virus (HCV) Screening 1969 TdaP Immunization 1969 Hepatitis B Immunization (1 of 3 - 19+ 3-dose series) 1988 Cologuard 2014 Colonoscopy 2014 Colorectal Cancer Screening 2014 Immunochemical Fecal Occult Blood 2014 Pneumococcal Immunization (5 0+ years) (1 of 1 - PCV) 2019 Zoster Immunization (1 of 2) 2019 SARS-COV-2 Immunization (1 - season) 2024 Influenza Immunization (#1) 2025 09/08/2019 Respiratory Syncytial Virus (RSV) Immunization (Adult) (1 - 1-dose 75+ series) 2044 Human Papillomavirus (HPV) Immunization Aged Out No longer eligible b ased on patient's age to complete this topic Meningococcal Immunization (ACWY) Aged Out No longer eligible based on patient's age to complete this topic Rotavirus Immunization Aged Out No lo nger eligible based on patient's age to complete this topic
[2025-06-20 09:39] LABS: Alanine Aminotransferase 55 U/L (6-50); Albumin Level 4.2 g/dL (3.5-5.1); Alkaline Phosphatase 76 U/L (38-126); Anion Gap 8 mmol/L (4-12); Aspartate Amino Transferase 41 U/L (17-59); Bilirubin,Total 0.9 mg/dL (0.2-1.3); Blood Urea Nitrogen 26 mg/dL (9-20); Calcium 8.9 mg/dL (8.4-10.2); Carbon Dioxide 27 mmol/L (22-30); Chloride 105 mmol/L (98-107); Cholesterol 194 mg/dL (0-200); Estimated Glomerular Filt Rate > 60; Glucose 116 mg/dL (65-110); HDL Direct 33 mg/dL; Potassium 4.1 mmol/L (3.4-5.0); Sodium 140 mmol/L (137-145); Total Protein 7.0 g/dL (6.3-8.2); Triglycerides 200 mg/dL (<150)
== END 2025-06-20 08:49 | disposition home or self-care (01) ==
LOC: ANHLAB 08:50
PROVIDERS: PCP Emergency Medicine; Visit Provider Emergency Medicine
DX: E78.5 Hyperlipidemia, unspecified (principal); E55.9 Vitamin D deficiency, unspecified
CPT/HCPCS: 36415; 80053; 80061; 82306

== ENCOUNTER 2025-07-11 10:33 | Observation (INO) | payer OTHER, SELFPAY ==
[2025-07-11] VITALS (15 sets, daily range): BP systolic 110–152; BP diastolic 72–94; PULSE 78–89; RESP 14–27; TEMP 36.2–36.4; O2SAT 98–99; BMI 35.3
--- NOTE | ~2025-07-11 | CT_ITS ---
CT abdomen pelvis w con INDICATION:bloody diarrhea . COMPARISON: None. TECHNIQUE: Axial images of the abdomen and pelvis were obtained following infusion of 100 mL Isovue 300. Dose optimization technique was utilized. FINDINGS: The lung bases are clear. Fatty infiltration of the liver is noted. No intrahepatic mass or ductal dilatation is evident. The gallbladder is unremarkable. The pancreas and spleen are normal in appearance. The adrenal glands are symmetric in size. The kidneys demonstrate symmetric uptake and excretion of contrast. No cystic mass is evident. There is no solid mass. There is no hydronephrosis. The stomach and bowel loops are unremarkable. The appendix is normal in appearance. There is colonic diverticulosis without evidence of acute diverticulitis. The bladder and rectum are normal. No free intraperitoneal fluid or air is evident. There is no significant retroperitoneal lymphadenopathy. The aorta, visceral vessels and renal arteries demonstrate normal caliber and patency. The lower thoracic and lumbar vertebrae are in normal alignment. IMPRESSION: No acute abnormality is noted in the abdomen and pelvis. Colonic diverticulosis without evidence of acute diverticulitis. All CT scans at this facility are performed using low dose modulation techniques as appropriate to perform exam including the following: automated exposure control; use of iterative reconstruction technique; adjustment of the mA and/or kV according to patient size (this includes techniques or standardized protocols for targeted exams where dose is matched to indication/reason for exam). Reviewed, dictated and finalized at location S. IMPRESSION: No acute abnormality is noted in the abdomen and pelvis. Colonic diverticulosis without evidence of acute diverticulitis. All CT scans at this facility are performed using low dose modulation techniqu es as appropriate to perform exam including the following: automated exposure c ontrol; use of iterative reconstruction technique; adjustment of the mA and/or kV according to patient size (this includes techniques or standardized protocol s for targeted exams where dose is matched to indication/reason for exam).
--- NOTE | 2025-07-11 12:23 | ED.GIBLEED ---
HPI - GI Bleed General Chief complaint: GI Bleed <Jeanne Miller PA-C - Last Filed: 07/11/25 19:20> Stated complaint: diarrhea <Jeanne Miller PA-C - Last Filed: 07/11/25 19:20> Time Seen by Provider: 07/11/25 12:23 <Jeanne Miller PA-C - Last Filed: 07/11/25 19:20> Focused HPI: This is a 55 year old male that presents to the ER for blood in the stool. Ongoing over the last couple of weeks. Reports last night he started to have abdominal pain, diarrhea. Reports bright red blood in the stool as well as dark stool. Reports having bowel movement every hour ongoing since last night. Denies fevers. He does not take a blood thinner. No previous history of GI bleeding. Reports last colonoscopy was about [address] Brambila. GENERAL: Well-appearing, well-nourished, and in no acute distress. HEAD: Normocephalic, atraumatic. CHEST: Clear to auscultation. ?No respiratory distress. HEART: Regular rate and rhythm.? NEURO: ?Alert and oriented x3. Patient screened in triage and initial orders placed.? ?Additional care and disposition to be based upon?diagnostic testing and treatment. <Jeanne Miller PA-C - Last Filed: 07/11/25 19:20> History of Present Illness HPI Narrative: as per mse <Ghanshyam Georges III, DO - Last Filed: 07/11/25 17:40> Related Data Allergies/Adverse reactions: Allergies Allergy/AdvReac Type Severity Reaction Status Date / Time No Known Allergies Allergy Verified 07/11/25 17:24 <Jeanne Miller PA-C - Last Filed: 07/11/25 19:20> Review of Systems Review of Systems: All systems reviewed & are unremarkable except as noted in HPI and below <Ghanshyam Georges III, DO - Last Filed: 07/11/25 17:40> PMFSH Past Medical History Medical History: Medical History Diastasis recti Sinusitis Diastasis recti Ventral hernia without obstruction or gangrene Idiopathic peripheral neuropathy Acute suppur left otitis media w/o spontan rupture tympanic membrane Urinary frequency Diarrhea Wears glasses Vertigo Claustrophobia Colon cancer screening Hernia Chicken pox Neuropathy Arthritis Meningitis Broken collarbone <PRISCILLA Mata Last Filed: 07/11/25 19:20> Surgical History Surgical History: Surgical History History of ventral hernia repair 01/2017- Ventral hernia repair with Parietex mesh H/O elbow surgery History of neck surgery <PRISCILLA Mata Last Filed: 07/11/25 19:20> Family History Family History: Family History Other Arthritis Brain cancer Cerebrovascular accident Diabetes mellitus Family history of cardiovascular disease High cholesterol Hypertension <PRISCILLA Mata Last Filed: 07/11/25 19:20> Social History Social History: Social History (Updated 07/08/25 @ 14:54 by Hanna Guzman MA) Smoking status: Never smoker Alcohol intake: never Substance use type: does not use Do You Feel Safe in your Home?: Yes Lack of Transportation: No Lack of Food: Never True Current Housing: I Have Housing Concerned About Future Housing: No Difficulty Paying Gas/Electric Bills: No Difficulty Paying for Meds: No Currently Unemployed: No Education: Master's Degree or Higher Difficulty w/ Childcare or Family Care: No Living arrangements: with family Occupation/Education: occupation 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[employer] Spiritual care concerns: No <Jeanne Miller PA-C - Last Filed: 07/11/25 19:20> Exam Const: General: healthy appearing and no acute distress <Ghanshyam Georges III DO - Last Filed: 07/11/25 17:40> Nutritional Appearance: well nourished <Ghanshyam Georges III DO - Last Filed: 07/11/25 17:40> Orientation/consciousness: patient oriented x3 <Ghanshyam Georges III DO - Last Filed: 07/11/25 17:40> Limitations: no limitations <Ghanshyam Georges III DO - Last Filed: 07/11/25 17:40> Eyes: EOM: EOMs intact bilaterally <Ghanshyam Jf Georges III, DO - Last Filed: 07/11/25 17:40> Resp: Effort & Inspection: normal respiratory effort <Ghanshyam Jf Georges III, DO - Last Filed: 07/11/25 17:40> Auscultation: clear to auscultation bilaterally <Ghanshyam Jf Georges III, DO - Last Filed: 07/11/25 17:40> Cardio: Rate: regular rate <Ghanshyam Jf Georges III, DO - Last Filed: 07/11/25 17:40> Rhythm: regular rhythm <Ghanshyam Jf Georges III, DO - Last Filed: 07/11/25 17:40> GI: GI Palp: Yes Soft to palpation and No Tenderness to palpation present (GI) <Ghanshyam Jf Georges III, DO - Last Filed: 07/11/25 17:40> Auscultation: normal bowel sounds <Ghanshyam Jf Georges III, DO - Last Filed: 07/11/25 17:40> Rectal Exam: normal sphincter tone, heme positive stool and No hemorrhoids <Ghanshyam Jf Georges III, DO - Last Filed: 07/11/25 17:40> Skin: General skin exam: normal color <Ghanshyam Jf Georges III, DO - Last Filed: 07/11/25 17:40> Wounds: no wounds <Ghanshyam Jf Georges III, DO - Last Filed: 07/11/25 17:40> Neuro: General: patient oriented x3, moves all extremities and no focal motor deficits <Ghanshyam Jf Georges III, DO - Last Filed: 07/11/25 17:40> Speech: normal speech <Ghanshyam Jf Georges III, DO - Last Filed: 07/11/25 17:40> Extrem: General: normal to inspection and no clubbing, cyanosis or edema <Ghanshyam Jf Georges III, DO - Last Filed: 07/11/25 17:40> Psych: Mental Status: mental status grossly normal <Ghanshyam Jf Georges III, DO - Last Filed: 07/11/25 17:40> Affect: normal affect <Ghanshyam Jf Georges III, DO - Last Filed: 07/11/25 17:40> Attitude: cooperative <Ghanshyam Jf Georges III, DO - Last Filed: 07/11/25 17:40> Course Vital Signs Vital signs: Vital Signs Temperature 97.1 F L 07/11/25 10:34 Pulse Rate 79 07/11/25 10:34 Respiratory Rate 18 07/11/25 10:34 Blood Pressure 127/72 07/11/25 10:34 Pulse Oximetry 98 07/11/25 10:34 Temperature 97.6 F 07/11/25 14:51 Pulse Rate 78 07/11/25 19:04 Respiratory Rate 20 07/11/25 19:04 Blood Pressure 146/88 H 07/11/25 19:04 Pulse Oximetry 99 07/11/25 19:04 <JOHNIE Mata-C - Last Filed: 07/11/25 19:20> Vital Signs Temperature 97.1 F L 07/11/25 10:34 Pulse Rate 79 07/11/25 10:34 Respiratory Rate 18 07/11/25 10:34 Blood Pressure 127/72 07/11/25 10:34 Pulse Oximetry 98 07/11/25 10:34 Temperature 97.6 F 07/11/25 14:51 Pulse Rate 78 07/11/25 19:04 Respiratory Rate 20 07/11/25 19:04 Blood Pressure 146/88 H 07/11/25 19:04 Pulse Oximetry 99 07/11/25 19:04 <Ghanshyam Jf Georges III, DO - Last Filed: 07/11/25 17:40> MDM - GI Bleed MDM Narrative Medical decision making narrative: Pt presents with brbpr and lower abdominal cramping since last night. pt gross bright red blood in stool here and at home. will get labs and CT. labs stable VSS. CT no acute findings. discussed with Dr De Guzman and agrees to scope in morning can prep tonight. discussed with Ness Cha and agrees to admit. <Ghanshyam Jf Georges III, DO - Last Filed: 07/11/25 17:40> Differential Diagnosis Differential diagnosis: Likely hemorrhoids, infectious diarrhea, Lower gastrointestinal hemorrhage, melena and anal fissure <Ghanshyam Jf Georges III, DO - Last Filed: 07/11/25 17:40> Lab Data Result diagrams: 07/11/25 18:19 07/11/25 14:53 <Jeanne Miller PA-C - Last Filed: 07/11/25 19:20> Labs: Lab Results 07/11/25 Range/Units 14:53 WBC 10.4 H (4.5-10.0) K/mm3 RBC 4.94 (4.6-6.20) M/mm3 Hgb 15.4 (14.0-18.0) g/dL Hct 43.5 (42.0-52.0) % MCV 88.1 (80-100) fl MCH 31.2 (26-34) pg MCHC 35.4 (32-36) g/dl RDW 13.9 (11.5-14.5) % Plt Count 164 (150-375) k/mm3 MPV 8.6 (7.4-10.4) fl Immature Gran % (Auto) 0.4 (0-0.5) % Neut % (Auto) 72.3 (45.5-73.1) % Lymph % (Auto) 16.8 L (18.3-44.2) % [place] % (Auto) 7.9 (2.6-8.5) % Eos % (Auto) 2.0 (0-4.4) % Baso % (Auto) 0.6 (0.2-1.2) % Lymph # (Auto) 1.75 (0.9-3.2) K/mm3 [place] # (Auto) 0.8 H (0.1-0.6) K/mm3 Eos # (Auto) 0.2 (0-0.3) K/mm3 Baso # (Auto) 0.1 (0.0-0.1) K/mm3 Abs Immat Gran (auto) 0.04 H (0.00-0.031) K/mm3 Absolute Neuts (auto) 7.6 H (1.3-6.7) K/mm3 Absolute Nucleated RBC 0.000 (0.0-0.012) K/mm3 Nucleated RBC % 0.0 (0.0-0.2) % PT 14.0 (11.1-14.7) Seconds INR 1.1 APTT 30.2 (22.3-36.8) Seconds Sodium 136 L (137-145) mmol/L Potassium 3.9 (3.4-5.0) mmol/L Chloride 101 (98-107) mmol/L Carbon Dioxide 27 (22-30) mmol/L Anion Gap 8 (4-12) mmol/L BUN 19 (9-20) mg/dL Creatinine 0.77 (0.7-1.3) mg/dL Estim Creat Clear Calc 103 ml/min Estimated GFR > 60 (59 - ) Glucose 93 (65-110) mg/dL Calcium 8.6 (8.4-10.2) mg/dL Total Bilirubin 1.0 (0.2-1.3) mg/dL AST 44 (17-59) U/L ALT 55 H (6-50) U/L Alkaline Phosphatase 80 (38-126) U/L Total Protein 7.0 (6.3-8.2) g/dL Albumin 4.3 (3.5-5.1) g/dL Urine Color Yellow (Yellow) Urine Appearance Clear (Clear) Urine pH 5.5 (5.0-9.0) Ur Specific [place] 1.043 H (1.001-1.035) Urine Protein Negative (Negative) mg/dL Urine Glucose (UA) Negative (Negative) mg/dL Urine Ketones Trace H (Negative) mg/dL Ur Blood (Man) Negative (Negative) Urine Nitrate Negative (Negative) Urine Bilirubin Negative (Negative) Urine Urobilinogen 0.2 (<2.0) mg/dL Leukocyte Esterase Rfl Negative (Negative) HOLLI/UL Blood Type A Negative Antibody Screen Negative <Jeanne Miller PA-C - Last Filed: 07/11/25 19:20> Lab Results 07/11/25 Range/Units 14:53 WBC 10.4 H (4.5-10.0) K/mm3 RBC 4.94 (4.6-6.20) M/mm3 Hgb 15.4 (14.0-18.0) g/dL Hct 43.5 (42.0-52.0) % MCV 88.1 (80-100) fl MCH 31.2 (26-34) pg MCHC 35.4 (32-36) g/dl RDW 13.9 (11.5-14.5) % Plt Count 164 (150-375) k/mm3 MPV 8.6 (7.4-10.4) fl Immature Gran % (Auto) 0.4 (0-0.5) % Neut % (Auto) 72.3 (45.5-73.1) % Lymph % (Auto) 16.8 L (18.3-44.2) % [place] % (Auto) 7.9 (2.6-8.5) % Eos % (Auto) 2.0 (0-4.4) % Baso % (Auto) 0.6 (0.2-1.2) % Lymph # (Auto) 1.75 (0.9-3.2) K/mm3 [place] # (Auto) 0.8 H (0.1-0.6) K/mm3 Eos # (Auto) 0.2 (0-0.3) K/mm3 Baso # (Auto) 0.1 (0.0-0.1) K/mm3 Abs Immat Gran (auto) 0.04 H (0.00-0.031) K/mm3 Absolute Neuts (auto) 7.6 H (1.3-6.7) K/mm3 Absolute Nucleated RBC 0.000 (0.0-0.012) K/mm3 Nucleated RBC % 0.0 (0.0-0.2) % PT 14.0 (11.1-14.7) Seconds INR 1.1 APTT 30.2 (22.3-36.8) Seconds Sodium 136 L (137-145) mmol/L Potassium 3.9 (3.4-5.0) mmol/L Chloride 101 (98-107) mmol/L Carbon Dioxide 27 (22-30) mmol/L Anion Gap 8 (4-12) mmol/L BUN 19 (9-20) mg/dL Creatinine 0.77 (0.7-1.3) mg/dL Estim Creat Clear Calc 103 ml/min Estimated GFR > 60 (59 - ) Glucose 93 (65-110) mg/dL Calcium 8.6 (8.4-10.2) mg/dL Total Bilirubin 1.0 (0.2-1.3) mg/dL AST 44 (17-59) U/L ALT 55 H (6-50) U/L Alkaline Phosphatase 80 (38-126) U/L Total Protein 7.0 (6.3-8.2) g/dL Albumin 4.3 (3.5-5.1) g/dL Urine Color Yellow (Yellow) Urine Appearance Clear (Clear) Urine pH 5.5 (5.0-9.0) Ur Specific [place] 1.043 H (1.001-1.035) Urine Protein Negative (Negative) mg/dL Urine Glucose (UA) Negative (Negative) mg/dL Urine Ketones Trace H (Negative) mg/dL Ur Blood (Man) Negative (Negative) Urine Nitrate Negative (Negative) Urine Bilirubin Negative (Negative) Urine Urobilinogen 0.2 (<2.0) mg/dL Leukocyte Esterase Rfl Negative (Negative) HOLLI/UL Blood Type A Negative Antibody Screen Negative <Ghanshyam Georges III, DO - Last Filed: 07/11/25 17:40> Critical Care Time Critical Care Time Critical Care Time: No <Jeanne Miller PA-C - Last Filed: 07/11/25 19:20> Discharge Plan Discharge Clinical Impression: GI (gastrointestinal bleed) Qualifiers: GI bleed type/associated pathology: unspecified gastrointestinal hemorrhage type Qualified Code(s): K92.2 - Gastrointestinal hemorrhage, unspecified <Jeanne Miller PA-C - Last Filed: 07/11/25 19:20> Patient Disposition: Still a Patient <PRISCILLA Mata Last Filed: 07/11/25 19:20> Condition: Stable <Jeanne Miller PA-C - Last Filed: 07/11/25 19:20>
[2025-07-11 15:03] LABS: Hematocrit 43.5 % (42.0-52.0); Hemoglobin 15.4 g/dL (14.0-18.0); Immature Granulocyte Percent A 0.4 % (0-0.5); Lymphocytes Absolute Auto 1.75 K/mm3 (0.9-3.2); Mean Corpuscular HGB Conc 35.4 g/dl (32-36); Mean Corpuscular Hemoglobin 31.2 pg (26-34); Mean Corpuscular Volume 88.1 fl (80-100); Nucleated Red Blood Cells Absolute Auto 0.000 K/mm3 (0.0-0.012); Nucleated Red Blood Cells Perc 0.0 % (0.0-0.2); Platelet Count Result 164 k/mm3 (150-375); Red Blood Count 4.94 M/mm3 (4.6-6.20); White Blood Count 10.4 K/mm3 (4.5-10.0)
[2025-07-11 15:05] LABS: Add Urine Microscopic? NO; Appearance Urine Clear (Clear); Glucose Urine UA Negative (Negative); Leukocyte Esterase Ur Negative LEU/UL (Negative); Nitrate Urine Negative (Negative); Specific Grav Ur 1.043 (1.001-1.035)
[2025-07-11 15:16] LABS: Alanine Aminotransferase 55 U/L (6-50); Albumin Level 4.3 g/dL (3.5-5.1); Alkaline Phosphatase 80 U/L (38-126); Anion Gap 8 mmol/L (4-12); Aspartate Amino Transferase 44 U/L (17-59); Bilirubin,Total 1.0 mg/dL (0.2-1.3); Blood Urea Nitrogen 19 mg/dL (9-20); Calcium 8.6 mg/dL (8.4-10.2); Carbon Dioxide 27 mmol/L (22-30); Chloride 101 mmol/L (98-107); Estimated CRCL calculation 103 ml/min; Estimated Glomerular Filt Rate > 60; Glucose 93 mg/dL (65-110); Potassium 3.9 mmol/L (3.4-5.0); Sodium 136 mmol/L (137-145); Total Protein 7.0 g/dL (6.3-8.2)
[2025-07-11 15:24] LABS: INR 1.1; Partial Thromboplastin Time 30.2 Seconds (22.3-36.8); Prothrombin Time 14.0 Seconds (11.1-14.7)
--- NOTE | 2025-07-11 17:26 | PC.NURSE ---
Pt to ed rm 4. Pt reports he's had several bloody stools while in waiting room.
--- OUTSIDE RECORDS SUMMARY | 2025-07-11 18:05 | XMS_ITS | Clinical Summary ---
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 Gender Identity Not on file Sexual Orientation Not on file Last Filed Vital Signs Vital Sign Reading Time Taken Comments Blood Pressure 126/81 09/13/2018 8:29 AM PRIVATE BRANCH EXCHANGE REPAIRER Pulse 78 09/13/2018 8:29 AM PRIVATE BRANCH EXCHANGE REPAIRER Temperature 36.5 C (97.7 F) 09/13/2018 8:29 AM PRIVATE BRANCH EXCHANGE REPAIRER Respiratory Rate 20 09/13/2018 8:29 AM PRIVATE BRANCH EXCHANGE REPAIRER Oxygen Saturation 96% 09/13/2018 8:29 AM PRIVATE BRANCH EXCHANGE REPAIRER Inhaled Oxygen Concentration - - Weight 85.7 kg (189 lb) 09/13/2018 8:29 AM PRIVATE BRANCH EXCHANGE REPAIRER Height 167 cm (5' 5.75) 09/13/2018 8:29 AM PRIVATE BRANCH EXCHANGE REPAIRER Body Mass Index 30.74 09/13/2018 8:29 AM PRIVATE BRANCH EXCHANGE REPAIRER Plan of Treatment Health Maintenance Due Date [...] Vaccine (1 - 2023-2 5 season) 2025 Influenza Adult (#1) 2025 Meningococcal B Vaccine Aged Out No l onger eligible based on patient's age to complete this topic Meningococcal Vaccine Aged Out No krista shira eligible based on patient's age to complete this topic RSV Immunizations Under 20 Months Aged Out No longer eligible based on patient's age to complete this topic Insurance Care Teams Test Borer Relationship Specialty Start Date End Date New Referring, Provider PCP - General UNKNOWN PHYSICIAN SPECIALTY 09/13/18
--- OUTSIDE RECORDS SUMMARY | 2025-07-11 18:05 | XMS_ITS | Clinical Summary ---
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
--- NOTE | 2025-07-11 18:07 | P.HP_ITS ---
H&P: HPI History of Present Illness Date/Time: 07/11/25 18:07 Chief Complaint: Bright red blood per rectum Narrative: 55-year-old male past medical history of neuropathy, claustrophobia, and vertigo presents the hospital with bright red blood per rectum and abdominal pain. Patient states that he has had some blood in his stool for couple weeks however last night he started having large amounts of bright red blood. Patient has cramp like pain. He states his bowel movements are now blood clots without any stool present. No history of GI bleed. Patient denies nausea vomiting fevers chills recent weight loss or other symptoms. Lab work in the ED shows WBC of 10.4, hemoglobin of 15.4, INR 1.1, sodium of 136, AST of 55, UA is negative for infection. CT abdomen pelvis show Colonic diverticulosis without evidence of acute diverticulitis. Review of Systems Review of Systems: 12 systems were reviewed and are negativ e except for as per HPI. COUNTS INCLUDE 234 BEDS AT THE [facility] Past Medical History Medical History Diastasis recti Sinusitis Diastasis recti Ventral hernia without obstruction or gangrene Idiopathic peripheral neuropathy Acute suppur left otitis media w/o spontan rupture tympanic membrane Urinary frequency Diarrhea Wears glasses Vertigo Claustrophobia Colon cancer screening Hernia Chicken pox Neuropathy Arthritis Meningitis Broken collarbone Surgical History Surgical History History of ventral hernia repair 01/2017- Ventral hernia repair with Parietex mesh H/O elbow surgery History of neck surgery Family History Family History Other Arthritis Brain cancer Cerebrovascular accident Diabetes mellitus Family history of cardiovascular disease High cholesterol Hypertension Social History Social History (Updated 07/08/25 @ 14:54 by Hanna Guzman MA) Smoking status: Never smoker Alcohol intake: never Substance use: never Substance use type: does not use Do You Feel Safe in your Home?: Yes Lack of Transportation: No Lack of Food: Never True Current Housing: I Have Housing Concerned About Future Housing: No Difficulty Paying Gas/Electric Bills: No Difficulty Paying for Meds: No Currently Unemployed: No Education: Master's Degree or Higher Difficulty w/ Childcare or Family Care: No Living arrangements: with family Occupation/Education: occupation 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[employer] Spiritual care concerns: No Meds Home Medications and Allergies Home Medications ?Medication ?Instructions ?Recorded ?Confirmed ?Type pregabalin 300 mg capsule (Lyrica) 200 mg PO HS 07/11/25 History trazodone 50 mg tablet 50 mg PO QHS insomnia 07/11/25 History Allergies Allergy/AdvReac Type Severity Reaction Status Date / Time No Known Allergies Allergy Verified 07/11/25 22:09 Vital Signs Vital Signs - 24 hr 07/11/25 10:34 07/11/25 14:51 07/11/25 17:13 Temperature 97.1 F L 97.6 F Pulse Rate 79 83 83 Respiratory Rate 18 17 22 H Blood Pressure 127/72 125/78 Pulse Oximetry 98 98 98 07/11/25 17:15 Temperature Pulse Rate 89 Respiratory Rate 14 Blood Pressure 110/82 Pulse Oximetry 98 Exam Narrative: General: well appearing, appears stated age. HEENT: normocephalic, atraumatic. Mucous membranes moist. EOMI, PERRLA, bilateral sclera anicteric, no conjunctival injection. Neck supple without JVD, lymphadenopathy, or bruit. Respiratory: clear to ascultation bilaterally. No rales/rhonic/wheezes. Cardiovascular: Regular rate and rhythm, normal S1-S2 upon ascultation. No murmurs, rubs, or clicks. PMI is nondisplaced, capillary refill less than 3 second. Abdomen: Obese, Soft, round, no pulsatile masses, nondistended and nontender. No rebound, no guarding. Bowel sounds present to all four quadrants. No high pitch or tinkling sounds, resonant to percussion. Extremities: No cyanosis, clubbing, or edema present. Pulses are palpable 2/2. Active ROM to all four extremities. Neuro: Alert and orientated x 4. PERRLA. Cranial nerves 2-12 intact without focal deficit. Skin: Warm, dry, and intact, without rash, erythema, or lesion. Psych: pleasant, cooperative, normal speech, normal affect, no hallucinations, no dysarthia H&P: Results Labs Labs: Short CBC 07/11/25 Range/Units 14:53 WBC 10.4 H (4.5-10.0) K/mm3 Hgb 15.4 (14.0-18.0) g/dL Hct 43.5 (42.0-52.0) % Plt Count 164 (150-375) k/mm3 BMP 07/11/25 14:53 Sodium 136 L Potassium 3.9 Chloride 101 Carbon Dioxide 27 BUN 19 Creatinine 0.77 Glucose 93 Calcium 8.6 Liver Function 07/11/25 Range/Units 14:53 Total Bilirubin 1.0 (0.2-1.3) mg/dL AST 44 (17-59) U/L ALT 55 H (6-50) U/L Alkaline Phosphatase 80 (38-126) U/L Albumin 4.3 (3.5-5.1) g/dL Urine 07/11/25 Range/Units 14:53 Urine Color Yellow (Yellow) Urine Appearance Clear (Clear) Urine pH 5.5 (5.0-9.0) Ur Specific [place] 1.043 H (1.001-1.035) Urine Protein Negative (Negative) mg/dL Urine Glucose (UA) Negative (Negative) mg/dL Assessment and Plan Assessment and plan (1) GI (gastrointestinal bleed): Code(s): K92.2 - Gastrointestinal hemorrhage, unspecified Status: Acute Assessment and Plan: Bright red blood per rectum GI consulted Plan for scope tomorrow Bowel prep Clear liquid diet NPO midnight H&H q.6-stable IVF (2) Neuropathy: Code(s): G62.9 - Polyneuropathy, unspecified Status: Acute Assessment and Plan: Continue Lyrica (3) Insomnia: Code(s): G47.00 - Insomnia, unspecified Status: Acute Assessment and Plan: Continue trazodone Quality VTE Prophylaxis VTE prophylaxis: mechanical ordered If No VTE Prophylaxis Answer both mechanical and pharmacologic: Reason no pharmacologic proph: medical contraindication Hospitalist MIPS Advance Care Plan I have confirmed that the patient's Advanced Care Plan is present, code status is documented, or surrogate decision maker is listed in patient medical record.: Yes Medication Reconciliation I have utilized all available resources to obtain, update and review the patients current medications (includes all prescriptions, OTC, herbals, cannabis, and nutritional supplements).: Yes
[2025-07-11 18:26] LABS: Hematocrit 44.8 % (42.0-52.0); Hemoglobin 15.9 g/dL (14.0-18.0)
[2025-07-11] MEDS: PREGABALIN (*CRX) 50 MG CAPSULE 200 MG PO (23:56)
[2025-07-11] MEDS: SIMETHICONE 80 MG TAB.CHEW PO (23:57)
[2025-07-11] MEDS: SODIUM CHLORIDE 0.9% IV 1,000 ML 125 ML IV CONT (23:57)
[2025-07-12] VITALS (12 sets, daily range): BP systolic 104–138; BP diastolic 60–92; PULSE 73–102; RESP 13–22; TEMP 35.9–36.5; O2SAT 94–100
[2025-07-12 00:45] LABS: Hematocrit 44.3 % (42.0-52.0); Hemoglobin 15.8 g/dL (14.0-18.0)
[2025-07-12 07:04] LABS: Hematocrit 42.7 % (42.0-52.0); Hemoglobin 15.2 g/dL (14.0-18.0); Immature Granulocyte Percent A 0.6 % (0-0.5); Lymphocytes Absolute Auto 1.71 K/mm3 (0.9-3.2); Mean Corpuscular HGB Conc 35.6 g/dl (32-36); Mean Corpuscular Hemoglobin 31.3 pg (26-34); Mean Corpuscular Volume 87.9 fl (80-100); Nucleated Red Blood Cells Absolute Auto 0.000 K/mm3 (0.0-0.012); Nucleated Red Blood Cells Perc 0.0 % (0.0-0.2); Platelet Count Result 149 k/mm3 (150-375); Red Blood Count 4.86 M/mm3 (4.6-6.20); White Blood Count 8.8 K/mm3 (4.5-10.0)
[2025-07-12 07:24] LABS: Anion Gap 6 mmol/L (4-12); Blood Urea Nitrogen 16 mg/dL (9-20); Calcium 8.5 mg/dL (8.4-10.2); Carbon Dioxide 26 mmol/L (22-30); Chloride 105 mmol/L (98-107); Estimated CRCL calculation 108 ml/min; Estimated Glomerular Filt Rate > 60; Glucose 109 mg/dL (65-110); Potassium 3.6 mmol/L (3.4-5.0); Sodium 137 mmol/L (137-145)
[2025-07-12] MEDS: SODIUM CHLORIDE 0.9% IV 1,000 ML 125 ML IV CONT (08:00)
--- NOTE | 2025-07-12 08:10 | P.PNIM_ITS ---
Progress Note: A&P Assessment and Plan (1) GI (gastrointestinal bleed): Qualifiers: GI bleed type/associated pathology: unspecified gastrointestinal hemorrhage type Qualified Code(s): K92.2 - Gastrointestinal hemorrhage, unspecified Code(s): K92.2 - Gastrointestinal hemorrhage, unspecified Status: Acute Assessment and Plan: - presented with BRBPR - Hgb stable, HDS - CT A/P with no acute process, colonic diverticulosis without evidence of acute diverticulitis - completed bowel prep - GI consulted - planning for colonoscopy today - NPO - continue to trend Hgb q6H. Transfuse Hgb <7 (2) Neuropathy: Code(s): G62.9 - Polyneuropathy, unspecified Status: Acute Assessment and Plan: -Continue Lyrica (3) Insomnia: Code(s): G47.00 - Insomnia, unspecified Status: Acute Assessment and Plan: -Continue trazodone Subjective Date/time seen: 07/12/25 08:10 Interval history: Patient seen and examined at bedside. Completed bowel prep. Still seeing some clots in his stool. Having some abdominal cramping. Review of Systems Review of Systems: All systems reviewed & are unremarkable except as noted in HPI and below Exam Narrative: General: NAD Eyes: EOMI ENT: neck supple Cardiovascular: Regular rate and rhythm Respiratory: Clear to auscultation, respirations even and unlabored on RA Gastrointestinal: mild LLQ tenderness with palpation, Soft. Genitourinary: no suprapubic tenderness Musculoskeletal: No edema Skin: warm, dry Neuro: Alert. Psych: Mood appropriate Objective Data Vital Signs Vital Signs: Vital Signs - 24 hr 07/11/25 10:34 07/11/25 14:51 07/11/25 17:13 Temperature 97.1 F L 97.6 F Pulse Rate 79 83 83 Respiratory Rate 18 17 22 H Blood Pressure 127/72 125/78 Pulse Oximetry 98 98 98 Oxygen Delivery 07/11/25 17:15 07/11/25 17:54 07/11/25 18:00 Temperature Pulse Rate 89 85 81 Respiratory Rate 14 16 15 Blood Pressure 110/82 Pulse Oximetry 98 Oxygen Delivery 07/11/25 18:01 07/11/25 18:15 07/11/25 18:16 Temperature Pulse Rate 87 83 82 Respiratory Rate 27 H 22 H 22 H Blood Pressure 125/79 120/79 Pulse Oximetry Oxygen Delivery 07/11/25 18:30 07/11/25 18:31 07/11/25 18:45 Temperature Pulse Rate 82 82 81 Respiratory Rate 18 23 H 14 Blood Pressure 129/85 140/86 Pulse Oximetry Oxygen Delivery 07/11/25 18:46 07/11/25 19:04 07/11/25 21:20 Temperature 97.1 F L Pulse Rate 83 78 83 Respiratory Rate 18 20 20 Blood Pressure 146/88 H 152/94 H Pulse Oximetry 99 98 Oxygen Delivery 07/12/25 00:00 07/12/25 00:00 07/12/25 05:10 Temperature 96.7 F L Pulse Rate 102 H 96 Respiratory Rate 18 Blood Pressure 104/60 Pulse Oximetry 97 Oxygen Delivery Room Air Intake/Output Intake/Output: Intake & Output 07/09/25 07/10/25 07/11/25 07/12/25 23:59 23:59 23:59 23:59 Intake Total 1600 Balance 1600 Meds/Results Medications: Active Medications Generic Name Dose Route Start Last Admin Trade Name Freq PRN Reason Stop Dose Admin Sodium Chloride 1,000 mls @ 125 mls/hr 07/11/25 23:25 07/12/25 08:00 Normal Saline Iv IV CONT 125 mls/hr .Q8H WILLIAM Administration Pregabalin 200 mg 07/11/25 23:25 07/11/25 23:56 Pregabalin (*Crx) 50 Mg Capsule PO 200 mg HS WILLIAM Administration Simethicone 80 mg 07/11/25 22:27 07/11/25 23:57 Simethicone 80 Mg Tab.Chew PO 80 mg Q6HR PRN Administration GAS PAIN Trazodone HCl 50 mg 07/11/25 23:25 07/11/25 23:56 Trazodone Hcl 50 Mg Tablet PO 50 mg QHS WILLIAM Administration Radiology Results: ITS Impressions Abdomen/Pelvis CT 07/11/25 15:13 IMPRESSION: No acute abnormality is noted in the abdomen and pelvis. Colonic diverticulosis without evidence of acute diverticulitis. All CT scans at this facility are performed using low dose modulation techniques as appropriate to perform exam including the following: automated exposure control; use of iterative reconstruction technique; adjustment of the mA and/or kV according to patient size (this includes techniques or standardized protocols for targeted exams where dose is matched to indication/reason for exam). Labs Labs: Laboratory Results - last 24 hr 07/11/25 07/11/25 07/12/25 14:53 18:19 00:40 WBC 10.4 H RBC 4.94 Hgb 15.4 15.9 15.8 Hct 43.5 44.8 44.3 MCV 88.1 MCH 31.2 MCHC 35.4 RDW 13.9 Plt Count 164 MPV 8.6 Immature Gran % (Auto) 0.4 Neut % (Auto) 72.3 Lymph % (Auto) 16.8 L [place] % (Auto) 7.9 Eos % (Auto) 2.0 Baso % (Auto) 0.6 Lymph # (Auto) 1.75 [place] # (Auto) 0.8 H Eos # (Auto) 0.2 Baso # (Auto) 0.1 Abs Immat Gran (auto) 0.04 H Absolute Neuts (auto) 7.6 H Absolute Nucleated RBC 0.000 Nucleated RBC % 0.0 PT 14.0 INR 1.1 APTT 30.2 Sodium 136 L Potassium 3.9 Chloride 101 Carbon Dioxide 27 Anion Gap 8 BUN 19 Creatinine 0.77 Estim Creat Clear Calc 103 Estimated GFR > 60 Glucose 93 Calcium 8.6 Total Bilirubin 1.0 AST 44 ALT 55 H Alkaline Phosphatase 80 Total Protein 7.0 Albumin 4.3 Urine Color Yellow Urine Appearance Clear Urine pH 5.5 Ur Specific [place] 1.043 H Urine Protein Negative Urine Glucose (UA) Negative Urine Ketones Trace H Ur Blood (Man) Negative Urine Nitrate Negative Urine Bilirubin Negative Urine Urobilinogen 0.2 Leukocyte Esterase Rfl Negative Blood Type A Negative Antibody Screen Negative 07/12/25 06:48 WBC 8.8 RBC 4.86 Hgb 15.2 Hct 42.7 MCV 87.9 MCH 31.3 MCHC 35.6 RDW 13.5 Plt Count 149 L MPV 8.4 Immature Gran % (Auto) 0.6 H Neut % (Auto) 66.5 Lymph % (Auto) 19.4 [place] % (Auto) 10.5 H Eos % (Auto) 2.4 Baso % (Auto) 0.6 Lymph # (Auto) 1.71 [place] # (Auto) 0.9 H Eos # (Auto) 0.2 Baso # (Auto) 0.1 Abs Immat Gran (auto) 0.05 H Absolute Neuts (auto) 5.9 Absolute Nucleated RBC 0.000 Nucleated RBC % 0.0 PT INR APTT Sodium 137 Potassium 3.6 Chloride 105 Carbon Dioxide 26 Anion Gap 6 BUN 16 Creatinine 0.73 Estim Creat Clear Calc 108 Estimated GFR > 60 Glucose 109 Calcium 8.5 Total Bilirubin AST ALT Alkaline Phosphatase Total Protein Albumin Urine Color Urine Appearance Urine pH Ur Specific [place] Urine Protein Urine Glucose (UA) Urine Ketones Ur Blood (Man) Urine Nitrate Urine Bilirubin Urine Urobilinogen Leukocyte Esterase Rfl Blood Type Antibody Screen Quality VTE Prophylaxis VTE prophylaxis: mechanical ordered
[2025-07-12 08:35] LABS: Estimated CRCL calculation 89 ml/min; Estimated Glomerular Filt Rate > 60
--- NOTE | 2025-07-12 09:42 | WPDGICN ---
Assessment and Plan Assessment and plan (1) GI (gastrointestinal bleed): Qualifiers: GI bleed type/associated pathology: unspecified gastrointestinal hemorrhage type Qualified Code(s): K92.2 - Gastrointestinal hemorrhage, unspecified Code(s): K92.2 - Gastrointestinal hemorrhage, unspecified Status: Acute (2) Diverticulosis: Code(s): K57.90 - Diverticulosis of intestine, part unspecified, without perforation or abscess without bleeding Status: Acute (3) Hemorrhoids: Qualifiers: Hemorrhoid type: unspecified Qualified Code(s): K64.9 - Unspecified hemorrhoids Code(s): K64.9 - Unspecified hemorrhoids Status: Acute Plan 1. Lower GI bleed/diverticulosis/hemorrhoids: Last colonoscopy 11/24/2021 revealed diverticulosis medium size internal hemorrhoids and hyperplastic colon polyp that was removed. Five year repeat colonoscopy was recommended at that time. Patient admits to intermittent bright red blood per rectum over the past few weeks that varies from small amount to large amount and sometimes containing clots. Denies any melena. Prior to onset of bleeding the patient states that he had started having diarrhea. He denies any constipation or straining bowel movements prior to onset. He is on no aspirin, NSAIDs or anticoagulants. CT showed diverticulosis but no evidence acute diverticulitis. H&H has remained stable since admission with HGB 15, HCT 43, MCV 88, platelets 149 and INR 1.1. DDX: Hemorrhoid versus polyp versus AVM versus diverticular bleed. Patient has already completed bowel prep and is scheduled for colonoscopy today with Dr. Alvarado Schultz patient NPO Further recommendations to follow endoscopic evaluation Thank you very much for allowing me to share in the care of this very nice patient. This report may have been done utilizing a voice recognition system. Attempts have been made to correct errors. However, there may be uncorrected grammatical, spelling, and recognition errors present. GI Consult Note Consult date/time: 07/12/25 09:42 HPI: Juan Alberto Mays is a 55 year old male with PMSH of neuropathy, claustrophobia, ventral hernia repair with mesh in 2017 and vertigo. Patient presented to the ER 07/11/2025 with complaints of rectal bleeding. GI was consulted for rectal bleeding. Patient's Lamar was at his bedside throughout the entire visit. Patient states that over the past few weeks he has been having intermittent episodes of bright red blood per rectum that would varying amounts from small to large amounts and occasionally with clots. He also complains of lower abdominal pain related to gas and abdominal cramping that would occur prior to a liquid bowel movement. Patient states that prior to onset of bleeding he was having diarrhea but denies any recent constipation or straining bowel movements. He denies any nausea, vomiting, odynophagia, dysphagia, regurgitation. He has occasional reflux and has been taking [id number] Tums and recently started [id number] Prilosec but has not been taking this on a daily basis. He admits to early satiety recently but denies any appetite or weight loss. He denies any recent episodes of melena. Denies any aspirin, NSAID or anticoagulant use. Family history negative for GI cancers or IBD. ENDOSCOPY HISTORY: EGD: No prior EGD history COLONOSCOPY: 11/24/[address] De Guzman for CRC screening Findings: There was a single 4 mm polyp observed in the rectum. Cold snare polypectomy was performed. Polyp was completely excised A few diverticula were present in the descending colon and in the sigmoid colon that were not actively bleeding with no inflammation A few medium-sized internal hemorrhoids were seen in the rectum that were not actively bleeding Bx results: Hyperplastic polyp LABS AND STOOL STUDIES: Labs 07/12/2025: WBC 9, Hgb 15, Hct 43, MCV 88, platelets 149 Sodium 137, potassium 3.6, BUN 16, creatinine 0.73, GFR >60, calcium 8.5 Labs 07/11/2025: WBC 10, Hgb 15, Hct 44, MCV 88, platelets 164, INR 1.1 Sodium 136, potassium 3.9, BUN 19, creatinine 0.77, GFR >60, calcium 8.6 Total bilirubin 1.0, AST 44, ALT 55, Alkaline Phos 80, albumin 4.3 IMAGING: CT abd/pelvis w/contrast 07/11/2025: Fatty infiltration of the liver is noted. No intrahepatic mass or ductal dilatation is evident. The gallbladder is unremarkable. The pancreas and spleen are normal in appearance. The adrenal glands are symmetric in size. IMPRESSION: No acute abnormality is noted in the abdomen and pelvis. Colonic diverticulosis without evidence of acute diverticulitis. Review of Systems Constitutional: Constitutional: Reports as per HPI ENT: Reports as per HPI Cardiovascular: Cardiovascular: Reports as per HPI, Denies chest pain and Denies dyspnea Respiratory: Respiratory: Denies cough and Denies dyspnea Gastrointestinal: Gastrointestinal: Reports as per HPI Musculoskeletal: Musculoskeletal: Reports as per HPI Integumentary/Breasts: Skin/Breast: Reports as per HPI Psychiatric: Psychiatric: Reports as per HPI Endocrine: Endocrine: Reports no additional endocrine complaints Hematologic/Lymphatic: Hematologic/Lymphatic: Reports no additional hematologic/lymphatic complaints [facility] Past Medical History Medical History Diastasis recti Sinusitis Diastasis recti Ventral hernia without obstruction or gangrene Idiopathic peripheral neuropathy Acute suppur left otitis media w/o spontan rupture tympanic membrane Urinary frequency Diarrhea Wears glasses Vertigo Claustrophobia Colon cancer screening Hernia Chicken pox Neuropathy Arthritis Meningitis Broken collarbone Surgical History Surgical History History of ventral hernia repair 01/2017- Ventral hernia repair with Parietex mesh H/O elbow surgery History of neck surgery Family History Family History Other Arthritis Brain cancer Cerebrovascular accident Diabetes mellitus Family history of cardiovascular disease High cholesterol Hypertension Social History Social History (Updated 07/08/25 @ 14:54 by Hanna Guzman MA) Smoking status: Never smoker Alcohol intake: never Substance use: never Substance use type: does not use Do You Feel Safe in your Home?: Yes Lack of Transportation: No Lack of Food: Never True Current Housing: I Have Housing Concerned About Future Housing: No Difficulty Paying Gas/Electric Bills: No Difficulty Paying for Meds: No Currently Unemployed: No Education: Master's Degree or Higher Difficulty w/ Childcare or Family Care: No Living arrangements: with family Occupation/Education: occupation 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 Spiritual care concerns: No Meds Home Medications and Allergies Home Medications ?Medication ?Instructions ?Recorded ?Confirmed ?Type pregabalin 300 mg capsule (Lyrica) 200 mg PO HS 07/11/25 07/11/25 History trazodone 50 mg tablet 50 mg PO QHS insomnia 07/11/25 07/11/25 History Allergies Allergy/AdvReac Type Severity Reaction Status Date / Time No Known Allergies Allergy Verified 07/11/25 22:09 Vital Signs Vital Signs - 24 hr 07/11/25 10:34 07/11/25 14:51 07/11/25 17:13 Temperature 97.1 F L 97.6 F Pulse Rate 79 83 83 Respiratory Rate 18 17 22 H Blood Pressure 127/72 125/78 Pulse Oximetry 98 98 98 Oxygen Delivery 07/11/25 17:15 07/11/25 17:54 07/11/25 18:00 Temperature Pulse Rate 89 85 81 Respiratory Rate 14 16 15 Blood Pressure 110/82 Pulse Oximetry 98 Oxygen Delivery 07/11/25 18:01 07/11/25 18:15 07/11/25 18:16 Temperature Pulse Rate 87 83 82 Respiratory Rate 27 H 22 H 22 H Blood Pressure 125/79 120/79 Pulse Oximetry Oxygen Delivery 07/11/25 18:30 07/11/25 18:31 07/11/25 18:45 Temperature Pulse Rate 82 82 81 Respiratory Rate 18 23 H 14 Blood Pressure 129/85 140/86 Pulse Oximetry Oxygen Delivery 07/11/25 18:46 07/11/25 19:04 07/11/25 21:20 Temperature 97.1 F L Pulse Rate 83 78 83 Respiratory Rate 18 20 20 Blood Pressure 146/88 H 152/94 H Pulse Oximetry 99 98 Oxygen Delivery 07/12/25 00:00 07/12/25 00:00 07/12/25 05:10 Temperature 96.7 F L Pulse Rate 102 H 96 Respiratory Rate 18 Blood Pressure 104/60 Pulse Oximetry 97 Oxygen Delivery Room Air 07/12/25 08:00 Temperature Pulse Rate Respiratory Rate Blood Pressure Pulse Oximetry Oxygen Delivery Room Air Exam Const: General: cooperative, healthy appearing, comfortable, no acute distress and well developed Orientation/consciousness: oriented to person, oriented to place, oriented to time and patient oriented x3 HENMT: Head: normal to inspection, normocephalic and atraumatic Mouth: Yes Normal oral and palatal mucosa present and Yes moist mucous membranes Eyes: General: appearance normal, both eyes and all related structures Conjunctivae: conjunctivae normal Sclera: sclerae normal Pupils: Equal, round and reactive pupils present Neck: Neck: normal visual inspection Chest: Chest palpation & inspection: normal inspection of the chest Resp: Effort & Inspection: normal respiratory effort and able to speak in complete sentences Auscultation: clear to auscultation bilaterally Cardio: Jugular venous distension: no JVD Rate: regular rate Rhythm: regular rhythm Heart sounds: S1 normal heart sound present and S2 normal heart sound present GI: Inspection: normal to inspection GI Palp: Yes Soft to palpation and Yes No hepatosplenomegaly present Auscultation: normal bowel sounds Rectal Exam: deferred Skin: General skin exam: normal color and no rashes or lesions noted Neuro: General: oriented to person, oriented to place, oriented to time and patient oriented x3 Cranial nerves: Yes Equal, round and reactive pupils present Speech: normal speech Extrem: General: normal to inspection and no clubbing, cyanosis or edema Psych: Appearance: grossly normal and well kempt Affect: normal affect Results Labs 07/12/25 06:48 07/12/25 06:48 Labs: Short CBC 07/11/25 07/11/25 07/12/25 Range/Units 14:53 18:19 00:40 WBC 10.4 H (4.5-10.0) K/mm3 Hgb 15.4 15.9 15.8 (14.0-18.0) g/dL Hct 43.5 44.8 44.3 (42.0-52.0) % Plt Count 164 (150-375) k/mm3 07/12/25 Range/Units 06:48 WBC 8.8 (4.5-10.0) K/mm3 Hgb 15.2 (14.0-18.0) g/dL Hct 42.7 (42.0-52.0) % Plt Count 149 L (150-375) k/mm3 BMP 07/11/25 07/11/25 07/12/25 14:33 14:53 06:48 Sodium 136 L 137 Potassium 3.9 3.6 Chloride 101 105 Carbon Dioxide 27 26 BUN 19 16 Creatinine 0.90 0.77 0.73 Glucose 93 109 Calcium 8.6 8.5 Liver Function 07/11/25 Range/Units 14:53 Total Bilirubin 1.0 (0.2-1.3) mg/dL AST 44 (17-59) U/L ALT 55 H (6-50) U/L Alkaline Phosphatase 80 (38-126) U/L Albumin 4.3 (3.5-5.1) g/dL Urine 07/11/25 Range/Units 14:53 Urine Color Yellow (Yellow) Urine Appearance Clear (Clear) Urine pH 5.5 (5.0-9.0) Ur Specific [place] 1.043 H (1.001-1.035) Urine Protein Negative (Negative) mg/dL Urine Glucose (UA) Negative (Negative) mg/dL
[2025-07-12 11:22] LABS: Hematocrit 46.8 % (42.0-52.0); Hemoglobin 16.5 g/dL (14.0-18.0)
[2025-07-12] MEDS: LACTATED RINGERS 1,000 ML 150 ML IV CONT (13:18)
--- NOTE | 2025-07-12 13:18 | WPDANESEPPF ---
Anes - Initial Pre Proc Eval Procedure: Operation Date: 07/12/25 14:00 Proposed Procedures p Diagnostic Colonoscopy - Terell Childers MD Date/Time: 07/12/25 13:18 Surgeon: Facundo Myles MD Pre Op Diagnosis: gi bleed Patient Data Age: 55 Gender: M Height: 1.68 m Weight: 99.3 kg Last Vital Signs Temp 36.5 C 07/12/25 13:14 Pulse 73 07/12/25 13:14 Resp 18 07/12/25 13:14 BP 122/75 07/12/25 13:14 Pulse Ox 98 07/12/25 13:14 O2 Del Method Room Air 07/12/25 13:14 Allergies Allergy/AdvReac Type Severity Reaction Status Date / Time No Known Allergies Allergy Verified 07/12/25 13:09 Home Medications ?Medication ?Instructions ?Recorded ?Confirmed ?Type pregabalin 300 mg capsule (Lyrica) 200 mg PO HS 07/11/25 07/11/25 History trazodone 50 mg tablet 50 mg PO QHS insomnia 07/11/25 07/11/25 History Laboratory Tests 07/11/25 07/11/25 07/11/25 14:33 14:53 18:19 WBC 10.4 H K/mm3 (4.5-10.0) RBC 4.94 M/mm3 (4.6-6.20) Hgb 15.4 g/dL 15.9 g/dL (14.0-18.0) (14.0-18.0) Hct 43.5 % 44.8 % (42.0-52.0) (42.0-52.0) MCV 88.1 fl (80-100) MCH 31.2 pg (26-34) MCHC 35.4 g/dl (32-36) RDW 13.9 % (11.5-14.5) Plt Count 164 k/mm3 (150-375) MPV 8.6 fl (7.4-10.4) Immature Gran % (Auto) 0.4 % (0-0.5) Neut % (Auto) 72.3 % (45.5-73.1) Lymph % (Auto) 16.8 L % (18.3-44.2) [place] % (Auto) 7.9 % (2.6-8.5) Eos % (Auto) 2.0 % (0-4.4) Baso % (Auto) 0.6 % (0.2-1.2) Lymph # (Auto) 1.75 K/mm3 (0.9-3.2) [place] # (Auto) 0.8 H K/mm3 (0.1-0.6) Eos # (Auto) 0.2 K/mm3 (0-0.3) Baso # (Auto) 0.1 K/mm3 (0.0-0.1) Abs Immat Gran (auto) 0.04 H K/mm3 (0.00-0.031) Absolute Neuts (auto) 7.6 H K/mm3 (1.3-6.7) Absolute Nucleated RBC 0.000 K/mm3 (0.0-0.012) Nucleated RBC % 0.0 % (0.0-0.2) PT 14.0 Seconds (11.1-14.7) INR 1.1 APTT 30.2 Seconds (22.3-36.8) Sodium 136 L mmol/L (137-145) Potassium 3.9 mmol/L (3.4-5.0) Chloride 101 mmol/L (98-107) Carbon Dioxide 27 mmol/L (22-30) Anion Gap 8 mmol/L (4-12) BUN 19 mg/dL (9-20) Creatinine 0.90 mg/dL 0.77 mg/dL (0.7-1.3) (0.7-1.3) Estim Creat Clear Calc 89 ml/min 103 ml/min Estimated GFR > 60 > 60 (59 - ) (59 - ) Glucose 93 mg/dL (65-110) Calcium 8.6 mg/dL (8.4-10.2) Total Bilirubin 1.0 mg/dL (0.2-1.3) AST 44 U/L (17-59) ALT 55 H U/L (6-50) Alkaline Phosphatase 80 U/L (38-126) Total Protein 7.0 g/dL (6.3-8.2) Albumin 4.3 g/dL (3.5-5.1) Urine Color Yellow (Yellow) Urine Appearance Clear (Clear) Urine pH 5.5 (5.0-9.0) Ur Specific [place] 1.043 H (1.001-1.035) Urine Protein Negative mg/dL (Negative) Urine Glucose (UA) Negative mg/dL (Negative) Urine Ketones Trace H mg/dL (Negative) Ur Blood (Man) Negative (Negative) Urine Nitrate Negative (Negative) Urine Bilirubin Negative (Negative) Urine Urobilinogen 0.2 mg/dL (<2.0) Leukocyte Esterase Rfl Negative HOLLI/UL (Negative) Blood Type A Negative Antibody Screen Negative 07/12/25 07/12/25 07/12/25 00:40 06:48 11:12 WBC 8.8 K/mm3 (4.5-10.0) RBC 4.86 M/mm3 (4.6-6.20) Hgb 15.8 g/dL 15.2 g/dL 16.5 g/dL (14.0-18.0) (14.0-18.0) (14.0-18.0) Hct 44.3 % 42.7 % 46.8 % (42.0-52.0) (42.0-52.0) (42.0-52.0) MCV 87.9 fl (80-100) MCH 31.3 pg (26-34) MCHC 35.6 g/dl (32-36) RDW 13.5 % (11.5-14.5) Plt Count 149 L k/mm3 (150-375) MPV 8.4 fl (7.4-10.4) Immature Gran % (Auto) 0.6 H % (0-0.5) Neut % (Auto) 66.5 % (45.5-73.1) Lymph % (Auto) 19.4 % (18.3-44.2) [place] % (Auto) 10.5 H % (2.6-8.5) Eos % (Auto) 2.4 % (0-4.4) Baso % (Auto) 0.6 % (0.2-1.2) Lymph # (Auto) 1.71 K/mm3 (0.9-3.2) [place] # (Auto) 0.9 H K/mm3 (0.1-0.6) Eos # (Auto) 0.2 K/mm3 (0-0.3) Baso # (Auto) 0.1 K/mm3 (0.0-0.1) Abs Immat Gran (auto) 0.05 H K/mm3 (0.00-0.031) Absolute Neuts (auto) 5.9 K/mm3 (1.3-6.7) Absolute Nucleated RBC 0.000 K/mm3 (0.0-0.012) Nucleated RBC % 0.0 % (0.0-0.2) PT INR APTT Sodium 137 mmol/L (137-145) Potassium 3.6 mmol/L (3.4-5.0) Chloride 105 mmol/L (98-107) Carbon Dioxide 26 mmol/L (22-30) Anion Gap 6 mmol/L (4-12) BUN 16 mg/dL (9-20) Creatinine 0.73 mg/dL (0.7-1.3) Estim Creat Clear Calc 108 ml/min Estimated GFR > 60 (59 - ) Glucose 109 mg/dL (65-110) Calcium 8.5 mg/dL (8.4-10.2) Total Bilirubin AST ALT Alkaline Phosphatase Total Protein Albumin Urine Color Urine Appearance Urine pH Ur Specific [place] Urine Protein Urine Glucose (UA) Urine Ketones Ur Blood (Man) Urine Nitrate Urine Bilirubin Urine Urobilinogen Leukocyte Esterase Rfl Blood Type Antibody Screen Patient hx anesthesia problems: none Family hx anesthesia problems: none Results Review: All pre-operative results and documents have been reviewed as part of the pre-operative evaluation. [facility] Past Medical History Medical History Diastasis recti Sinusitis Diastasis recti Ventral hernia without obstruction or gangrene Idiopathic peripheral neuropathy Acute suppur left otitis media w/o spontan rupture tympanic membrane Urinary frequency Diarrhea Wears glasses Vertigo Claustrophobia Colon cancer screening Hernia Chicken pox Neuropathy Arthritis Meningitis Broken collarbone Surgical History Surgical History History of ventral hernia repair 01/2017- Ventral hernia repair with Parietex mesh H/O elbow surgery History of neck surgery Family History Family History Other Arthritis Brain cancer Cerebrovascular accident Diabetes mellitus Family history of cardiovascular disease High cholesterol Hypertension Social History Social History (Updated 07/08/25 @ 14:54 by Hanna Guzman MA) Smoking status: Never smoker Alcohol intake: never Substance use: never Substance use type: does not use Do You Feel Safe in your Home?: Yes Lack of Transportation: No Lack of Food: Never True Current Housing: I Have Housing Concerned About Future Housing: No Difficulty Paying Gas/Electric Bills: No Difficulty Paying for Meds: No Currently Unemployed: No Education: Master's Degree or Higher Difficulty w/ Childcare or Family Care: No Living arrangements: with family Occupation/Education: occupation Additional occupation/education comments: [employer] Spiritual care concerns: No Anes - Eval Final PreProcedure Day of Procedure 07/12/25 13:18 Patient weight: obese Heart: regular rate and rhythm Lungs: clear to auscultation Airway: Mallampati scale class III Neurological: alert and oriented Last oral intake: >/= 8 hours ASA classification: III Emergent: no Anesthetic plan: proceed Anesthesia type and monitoring: general GIVS and standard monitoring Results Review: All pre-operative results and documents have been reviewed as part of the pre-operative evaluation. Informed Consent: The patient's anesthetic plan and its attendant risks and benefits were discussed with the patient/family/POA. Questions were solicited and answers provided to the satisfaction of the patient/family/POA.
--- NOTE | 2025-07-12 14:27 | S_PTH ---
PATIENT: Juan Alberto Mays LOC: [id number] U#:[id number] AGE/SX: 55/M ROOM: 321 RE07/11/[address]: Facundo Myles MD : [id number] BED: 02 DIS: 07/13/2025 SPEC #: [id number] RECD: 07/15/25 07:44 STATUS: CRISTAL REQ #: [id number] SHADI: 07/12/25 14:[address]: Terell Childers DEPT: [facility] RECD BY: Alma Rosa Pierce ENTERED: 07/15/25 07:45 SP TYPE: Surgical OTHR DR: MD Facundo Richter MD Edmundo A. Rodriguez-Frias, MD Natalie J. Ross, PA Tissues: A - Colon Biopsy Procedures: Hematoxylin and Eosin Stain Gross and Microscopic Level 4
[2025-07-12] MEDS: ACETAMINOPHEN 325 MG TABLET 650 MG PO (15:36)
[2025-07-12] MEDS: PREGABALIN (*CRX) 50 MG CAPSULE 200 MG PO (20:26)
--- NOTE | 2025-07-12 22:02 | ECG_ITS ---
Test Date: 2025-07-12 22:12:20 Measurements Intervals [place] Rate: 79 P: 34 NM: 152 QRS: 59 QRSD: 95 T: 36 QT: 370 QTc: 425 Interpretive Statements SINUS RHYTHM NORMAL ECG No previous ECG available for comparison Electronically Signed On 07-13-2025 07:23:27 CDT by Leandro Ardon D.O.
--- NOTE | 2025-07-12 22:02 | P.RRN_ITS ---
Critical Care Event Note Summary Code activated: No Narrative: Called by nursing for patient complaining of chest pain Per patient he had chest pain earlier today however he did not reported to nursing, he has no history of cardiac issues Trend troponins EKG Nitro GI cocktail Aspirin EKG shows sinus rhythm, 1st troponin negative Critical Care Time Critical Care Time: Yes Total Critical Care Time: 35 Due to a high probability of clinically significant, life threatening deteriorat ion, the patient required my highest level of preparedness to intervene emergently and I personally spent this critical care time directly and personally managing the patient. This critical care time included obtaining a history; examining the patient; pulse oximetry; ordering and review of studies; arranging urgent treatment with development of a management plan; evaluation of patient's response to treatment; frequent reassessment; and discussions with other providers. It was exclusive of separately billable procedures and treating other patients and teaching time. Please see Assessment and Plan section and the rest of the note for further information on patient assessment and treatment. This case had a high probability of a clinically significant, sudden, or life threatening deterioration of this patient's condition which required my full and direct attention, intervention and personal management. Critical care time: 30 - 74 mins
[2025-07-12] MEDS: ASPIRIN 81 MG CHEWABLE TABLET 324 MG PO (22:18)
[2025-07-12] MEDS: BELLADONNA ALK/PHENOB ELIX 10 ML, MAG HYDROX/ALUMINUM HYD/SIMETH 30 ML, LIDOCAINE 2% VI... PO (22:30)
[2025-07-12 23:03] LABS: Troponin I < 0.012 ng/mL (0.000-0.034)
--- NOTE | 2025-07-12 23:13 | PC.NURSE ---
2199: pt reported having chest pain lasted for less than a minute. Reported having similar symptoms earlier this evening but did not report it. Contacted hospitalist. Stat orders received 2211: EKG NSR, Trop negative. GI cocktail, Asprin given. Pt reports not having chest pain at this time. Pt education given on the importance of notifying the staff when having chest pain. Pt agreeable with plan. Will continue to monitor.
[2025-07-13] VITALS: PULSE 81
[2025-07-13 02:02] LABS: Troponin I < 0.012 ng/mL (0.000-0.034)
[2025-07-13 04:00] VITALS: PULSE 75
[2025-07-13 04:19] LABS: Hematocrit 41.5 % (42.0-52.0); Hemoglobin 14.7 g/dL (14.0-18.0); Immature Granulocyte Percent A 0.6 % (0-0.5); Lymphocytes Absolute Auto 2.39 K/mm3 (0.9-3.2); Mean Corpuscular HGB Conc 35.4 g/dl (32-36); Mean Corpuscular Hemoglobin 31.2 pg (26-34); Mean Corpuscular Volume 88.1 fl (80-100); Nucleated Red Blood Cells Absolute Auto 0.000 K/mm3 (0.0-0.012); Nucleated Red Blood Cells Perc 0.0 % (0.0-0.2); Platelet Count Result 152 k/mm3 (150-375); Red Blood Count 4.71 M/mm3 (4.6-6.20); White Blood Count 8.7 K/mm3 (4.5-10.0)
[2025-07-13 04:42] LABS: Troponin I < 0.012 ng/mL (0.000-0.034)
[2025-07-13 05:40] VITALS: BP 148/68; PULSE 72; RESP 16; TEMP 37.2; O2SAT 100
--- NOTE | 2025-07-13 07:53 | ECG_ITS ---
Test Date: 2025-07-13 10:05:22 Measurements Intervals [place] Rate: 70 P: 13 AL: 153 QRS: 31 QRSD: 90 T: 15 QT: 383 QTc: 415 Interpretive Statements SINUS RHYTHM MINIMAL Q WAVES- INFERIOR LEADS BORDERLINE ECG Compared to ECG 07/12/2025 22:12:20 No significant changes Electronically Signed On 07-13-2025 13:45:33 CDT by Leandro Ardon D.O.
[2025-07-13 08:00] VITALS: PULSE 86
--- NOTE | 2025-07-13 10:46 | P.DS_ITS ---
DS: Admitting Diagnosis Discharge Date 07/13/25 Admitting Diagnosis - GI bleed DS: Discharge Diagnosis Discharge Diagnosis (1) GI (gastrointestinal bleed): Qualifiers: GI bleed type/associated pathology: unspecified gastrointestinal hemorrhage type Qualified Code(s): K92.2 - Gastrointestinal hemorrhage, unspeci fied Code(s): K92.2 - Gastrointestinal hemorrhage, unspecified Status: Acute (2) Neuropathy: Code(s): G62.9 - Polyneuropathy, unspecified Status: Acute (3) Insomnia: Code(s): G47.00 - Insomnia, unspecified Status: Acute DS: Summary Hospital Course Reason for hospitalization: - GI bleed Hospital Course: Patient is a 55-year-old male past medical history of neuropathy, claustrophobia, and vertigo presents the hospital with bright red blood per rectum and abdominal pain. Lab work in the ED showed WBC of 10.4, hemoglobin of 15.4, INR 1.1, sodium of 136, AST of 55, UA is negative for infection. CT abdomen pelvis show Colonic diverticulosis without evidence of acute diverticulitis. Patient subsequently underwent colonoscopy 07/12 which showed severe segmental colitis, diverticulosis and internal hemorrhoids. Multiple cold forceps biopsies were taken. Suspect possible NSAID induced colitis as patient reports taking more ibuprofen over the last month. Patient was restarted on a low fat diet and did not have any further episodes of bleeding. Hemoglobin and vital signs remained stable. Patient was cleared for discharge by GI. He is instructed to follow up as an outpatient and have a repeat colonoscopy in 3 months. He was instructed to avoid all NSAIDs. Instructed to have repeat CBC in 5-7 days and to monitor for further episodes of bleeding. While admitted, patient had episode of chest pain for which a rapid response was called 07/12. Patient described the pain as a sharp pain in the left side of his chest. Reports episodes of similar pain in the past with history of GERD and stress. Troponin negative x3 and EKG with no acute ischemic change x2. Patient did not have any further recurrence of chest pain while admitted. Suspect atypical chest pain due to GERD or anxiety. Patient was instructed to follow up with his primary care provider to consider further cardiac testing if pain recurs. Patient was discharged home in stable condition. Strict return precautions discussed. Status at Discharge Functional status at discharge: independent ambulation Overall status at discharge: patient is back to baseline Time Spent with Patient Time attestation: Total time spent providing and/or coordinating discharge services: Time spent: Greater than 30 minutes Exam Narrative: General: NAD Eyes: EOMI ENT: neck supple Cardiovascular: Regular rate and rhythm Respiratory: Clear to auscultation, respirations even and unlabored on RA Gastrointestinal: mild distention, soft with no TTP. Genitourinary: no suprapubic tenderness Musculoskeletal: No edema Skin: warm, dry Neuro: Alert. Psych: Mood appropriate DS: Data Data Completed and Pending Completed studies during hospitalization: ITS Impressions Abdomen/Pelvis CT 07/11/25 15:13 IMPRESSION: No acute abnormality is noted in the abdomen and pelvis. Colonic diverticulosis without evidence of acute diverticulitis. All CT scans at this facility are performed using low dose modulation techniques as appropriate to perform exam including the following: automated exposure control; use of iterative reconstruction technique; adjustment of the mA and/or kV according to patient size (this includes techniques or standardized protocols for targeted exams where dose is matched to indication/reason for exam). Pending studies at discharge: Pending at discharge 07/12/25 14:27 Surgical [PTH] Routine Labs on day of discharge: Labs from last 24 hours 07/13/25 07/13/25 07/12/25 04:14 01:26 22:34 WBC 8.7 RBC 4.71 Hgb 14.7 Hct 41.5 L MCV 88.1 MCH 31.2 MCHC 35.4 RDW 13.6 Plt Count 152 MPV 8.4 Immature Gran % (Auto) 0.6 H Neut % (Auto) 58.4 Lymph % (Auto) 27.3 [place] % (Auto) 9.8 H Eos % (Auto) 3.2 Baso % (Auto) 0.7 Lymph # (Auto) 2.39 Franklin # (Auto) 0.9 H Eos # (Auto) 0.3 Baso # (Auto) 0.1 Abs Immat Gran (auto) 0.05 H Absolute Neuts (auto) 5.1 Absolute Nucleated RBC 0.000 Nucleated RBC % 0.0 Troponin I < 0.012 < 0.012 < 0.012 07/12/25 11:12 WBC RBC Hgb 16.5 Hct 46.8 MCV MCH MCHC RDW Plt Count MPV Immature Gran % (Auto) Neut % (Auto) Lymph % (Auto) Franklin % (Auto) Eos % (Auto) Baso % (Auto) Lymph # (Auto) Franklin # (Auto) Eos # (Auto) Baso # (Auto) Abs Immat Gran (auto) Absolute Neuts (auto) Absolute Nucleated RBC Nucleated RBC % Troponin I Discharge Plan Discharge Attending physician on discharge: Facundo Myles Consulting providers: Veronika Hinkle; Elroy Brambila; Terell Childers Discharging Clinician: Veronika Hinkle Anticipated Discharge Date/Time: 07/13/25 10:41 Patient Disposition: Home Activity: as tolerated Diet: regular and low fat Discharge Instructions: Take all medications as prescribed. Finish antibiotics if prescribed, even if you are feeling better. Follow-up with your primary care provider in one week. Make an appointment with the GI to follow-up regarding your hospital stay. If you do not hear from their office in 1 week regarding the biopsy results, please call to their office to follow-up. Maintain a low fat diet. Stop taking antiinflammatories including ibuprofen/Advil, naproxen/Aleve. Return to the emergency department if you develop chest pain, shortness of breath, persistent fever >100.4, confusion, loss of consciousness, severe episodes of bleeding, lightheadedness, severe abdominal pain, severe fatigue. Patient Instructions: Colitis (ED) Patient Language: Romanian Stand Alone Forms: General Discharge Information Follow-up/Referrals: Noah Omalley MD [Primary Care Provider, Internal Medicine] - Call for Appointment Referral Note: Follow-up in 5-7 days. Repeat blood work prior to this appointment. Terell Childers MD [Physician, Gastroenterology] - Call for Appointment Referral Note: Call in 1 week if you have no heard from their office regarding the biopsy results Discharge Medications: Continued trazodone 50 mg tablet 50 mg PO QHS pregabalin [Lyrica] 300 mg capsule 200 mg PO HS Other Ambulatory Orders: Complete Blood Count with Diff (Routine) Timeframe: 5 Days Location: Determined by Patient Ordered By: Veronika Hinkle Date of admission: 07/11/25 17:48 Primary Care Provider: Noah Omalley Admitting Provider: Facundo Myles Attending physician on admission: Facundo Myles Condition: Stable
== END 2025-07-13 11:30 | disposition home or self-care (01) ==
LOC: ANHED 17:40 → ANH3MEDSUR 18:47
PROVIDERS: Internal Medicine Gastroenterology; Nurse Practitioner Gerontology; Physician Assistant; Admitting Provider Internal Medicine; Emergency Provider Emergency Medicine; PCP Emergency Medicine; Visit Provider Internal Medicine
PROC: 0DJD8ZZ Inspection of Lower Intestinal Tract, Via Natural or Artificial Opening Endoscopic (ICD-10-PCS; CPT 45378; principal; 2025-07-12 14:00)
DX: K55.9 Vascular disorder of intestine, unspecified (principal); K52.9 Noninfective gastroenteritis and colitis, unspecified; K57.30 Diverticulosis of large intestine without perforation or abscess without bleeding; K64.8 Other hemorrhoids; R07.9 Chest pain, unspecified; G62.9 Polyneuropathy, unspecified; G47.00 Insomnia, unspecified; Z86.0100 Personal history of colon polyps, unspecified
CPT/HCPCS: 45380; 36415; 74177; 80048; 80053; 81003; 82565; 84484; 85014; 85018; 85025; 85610; 85730; 86850; 86900; 86901; 88305; 93005; 99285; A9270; G0378; J2003; J2704; J7030; J7120; Q9967

== ENCOUNTER 2025-07-18 15:06 | Outpatient (CLI) | payer OTHER, SELFPAY ==
[2025-07-18 15:38] LABS: Hematocrit 42.9 % (42.0-52.0); Hemoglobin 15.3 g/dL (14.0-18.0); Immature Granulocyte Percent A 0.8 % (0-0.5); Lymphocytes Absolute Auto 2.17 K/mm3 (0.9-3.2); Mean Corpuscular HGB Conc 35.7 g/dl (32-36); Mean Corpuscular Hemoglobin 31.4 pg (26-34); Mean Corpuscular Volume 88.1 fl (80-100); Nucleated Red Blood Cells Absolute Auto 0.000 K/mm3 (0.0-0.012); Nucleated Red Blood Cells Perc 0.0 % (0.0-0.2); Platelet Count Result 204 k/mm3 (150-375); Red Blood Count 4.87 M/mm3 (4.6-6.20); White Blood Count 7.6 K/mm3 (4.5-10.0)
[2025-07-18 16:03] LABS: CRP 0.7 mg/dL (<1.0)
--- OUTSIDE RECORDS SUMMARY | 2025-07-18 16:11 | XMS_ITS | Clinical Summary ---
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
--- OUTSIDE RECORDS SUMMARY | 2025-07-18 16:11 | XMS_ITS | Clinical Summary ---
Author Organization [facility] Address Formerly [facility] [place] [address] Care Team Providers Care Manager Of Photography Name Role Phone New Referring, Provider Primary [...] on file Legal Sex Male 8:24 AM [employer]ESS [employer]ER [employer] Gender Identity Not on file Sexual Orientation Not on file Last Filed Vital Signs Vital Sign Reading Time Taken Comments Blood Pressure 126/81 09/13/2018 8:29 AM [employer] Pulse 78 09/13/2018 8:29 AM [employer] Temperature 36.5 C (97.7 F) 09/13/2018 8:29 AM [employer] Respiratory Rate 20 09/13/2018 8:29 AM [employer] Oxygen Saturation 96% 09/13/2018 8:29 AM [employer] Inhaled Oxygen Concentration - - Weight 85.7 kg (189 lb) 09/13/2018 8:29 AM [employer] Height 167 cm (5' 5.75) 09/13/2018 8:29 AM [employer] Body Mass Index 30.74 09/13/2018 8:29 AM [employer] Plan of Treatment Health Maintenance Due Date [...] of 2) 2019 COVID-19 Vaccine (1 - 2024-2 6 season) 2025 Influenza Adult (#1) 2025 Hepatitis A Vaccines Aged Out No long er eligible based on patient's age to complete this topic Meningococcal B Vaccine Aged Out No l onger eligible based on patient's age to complete this topic Meningococcal Vaccine Aged Out No krista shira eligible based on patient's age to complete this topic RSV Immunizations Under 20 Months Aged Out No longer eligible based on patient's age to complete this topic Insurance Care Teams Manager Of Photography Relationship Specialty Start Date End Date New Referring, Provider PCP - General UNKNOWN PHYSICIAN SPECIALTY 09/13/18
[2025-07-18 16:24] LABS: Hemoglobin A1C 5.4 % (<5.7)
[2025-07-18 16:55] LABS: Prostate Specific Antigen 0.6 ng/mL (< OR = 4.0)
== END 2025-07-18 15:07 | disposition home or self-care (01) ==
LOC: ANHLAB 15:07
PROVIDERS: Internal Medicine Gastroenterology; Physician Assistant; PCP Emergency Medicine; Visit Provider Emergency Medicine
DX: R97.20 Elevated prostate specific antigen [PSA] (principal); E11.9 Type 2 diabetes mellitus without complications; K52.9 Noninfective gastroenteritis and colitis, unspecified
CPT/HCPCS: 36415; 83036; 84153; 85025; 86140; G0103

== ENCOUNTER 2025-08-12 00:57 | Day surgery (SDC) | payer OTHER, SELFPAY ==
[2025-08-09 11:43] VITALS: BMI 35.2
--- OUTSIDE RECORDS SUMMARY | 2025-08-12 01:01 | XMS_ITS | Clinical Summary ---
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
--- OUTSIDE RECORDS SUMMARY | 2025-08-12 01:02 | XMS_ITS | Clinical Summary ---
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 Gender Identity Not on file Sexual Orientation Not on file Last Filed Vital Signs Vital Sign Reading Time Taken Comments Blood Pressure 126/81 09/13/2018 8:29 AM DIRECTOR OF PLACEMENT Pulse 78 09/13/2018 8:29 AM DIRECTOR OF PLACEMENT Temperature 36.5 C (97.7 F) 09/13/2018 8:29 AM DIRECTOR OF PLACEMENT Respiratory Rate 20 09/13/2018 8:29 AM DIRECTOR OF PLACEMENT Oxygen Saturation 96% 09/13/2018 8:29 AM DIRECTOR OF PLACEMENT Inhaled Oxygen Concentration - - Weight 85.7 kg (189 lb) 09/13/2018 8:29 AM DIRECTOR OF PLACEMENT Height 167 cm (5' 5.75) 09/13/2018 8:29 AM DIRECTOR OF PLACEMENT Body Mass Index 30.74 09/13/2018 8:29 AM DIRECTOR OF PLACEMENT Plan of Treatment Health Maintenance Due Date [...] to complete this topic Insurance Care Teams Call Box Wirer Relationship Specialty Start Date End Date New Referring, Provider PCP - General UNKNOWN PHYSICIAN SPECIALTY 09/13/18
[2025-08-12 12:44] VITALS: BP 135/74; PULSE 80; RESP 18; TEMP 36.6; O2SAT 98; BMI 34.4
[2025-08-12] MEDS: LACTATED RINGERS 1,000 ML 150 ML IV CONT (12:59)
--- NOTE | 2025-08-12 13:10 | P.PNAN_ITS ---
Anes - Initial Pre Proc Eval Procedure: Operation Date: 08/12/25 13:30 Proposed Procedures p EGD & Diagnostic Colonoscopy - Elroy Brambila MD Date/Time: 08/12/25 13:10 Surgeon: Elroy Brambila MD Pre Op Diagnosis: Sigmoiditis, GERD Patient Data Age: 55 Gender: M Height: 1.68 m Weight: 97 kg Last Vital Signs Temp 36.6 C 08/12/25 12:44 Pulse 80 08/12/25 12:44 Resp 18 08/12/25 12:44 BP 135/74 08/12/25 12:44 Pulse Ox 98 08/12/25 12:44 O2 Del Method Room Air 08/12/25 12:44 Allergies Allergy/AdvReac Type Severity Reaction Status Date / Time No Known Allergies Allergy Verified 08/12/25 12:43 Home Medications ?Medication ?Instructions ?Recorded ?Confirmed ?Type pregabalin 300 mg capsule (Lyrica) 200 mg PO HS 08/12/25 History omeprazole 40 mg capsule,delayed 40 mg PO DAILY #30 ca ps 07/18/25 08/12/25 Rx release simethicone 500 mg capsule 500 mg PO BID PRN gastric r eflux 07/19/25 08/12/25 History (Phazyme) trazodone 50 mg tablet 50 mg PO QHS insomnia #30 ta bs 07/29/25 08/12/25 Rx Patient hx anesthesia problems: none Family hx anesthesia problems: none Results Review: All pre-operative results and documents have been reviewed as part of the pre- operative evaluation. [facility] Past Medical History Medical History Diastasis recti Sinusitis Diastasis recti Ventral hernia without obstruction or gangrene Idiopathic peripheral neuropathy Acute suppur left otitis media w/o spontan rupture tympanic membrane Urinary frequency Diarrhea Wears glasses Vertigo Claustrophobia Colon cancer screening Hernia Chicken pox Neuropathy Arthritis Meningitis Broken collarbone Surgical History Surgical History History of ventral hernia repair 01/2017- Ventral hernia repair with Parietex mesh H/O elbow surgery History of neck surgery Family History Family History Other Arthritis Brain cancer Cerebrovascular accident Diabetes mellitus Family history of cardiovascular disease High cholesterol Hypertension Social History Social History Smoking status: Never smoker Alcohol intake: never Substance use: never Substance use type: does not use Do You Feel Safe in your Home?: Yes Lack of Transportation: No Lack of Food: Never True Current Housing: I Have Housing Concerned About Future Housing: No Difficulty Paying Gas/Electric Bills: No Difficulty Paying for Meds: No Currently Unemployed: No Education: Master's Degree or Higher Difficulty w/ Childcare or Family Care: No Living arrangements: with family Occupation/Education: occupation 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 Informed Consent: The patient's anesthetic plan and its attendant risks and benefits were discussed with the patient/family/POA. Questions were solicited and answers provided to the satisfaction of the patient/family/POA.
--- NOTE | 2025-08-12 13:48 | WPDHPUPDATE1 ---
History and Physical Update Update Date/Time: 08/12/25 13:48 History and Physical has been reviewed, including an updated exam of the patient. There are NO changes in the patient's condition. Risks, benefits, and alternatives have been discussed and questions answered. Patient agrees to proceed with procedure.
--- NOTE | 2025-08-12 14:00 | SUR.OPER ---
EGD: start 1354, end 1356 Colonoscopy: start 1400, end 1410
--- NOTE | 2025-08-12 14:02 | S_PTH ---
PATIENT: Juan Alberto Mays LOC: [facility] Tejeda#:[id number] AGE/SX: 55/M ROOM: RE08/12/[address]: Elroy Brambila MD : 1970 BED: DIS: 08/12/2025 SPEC #: [id number] RECD: 08/13/25 07:26 STATUS: CRISTAL REQ #: [id number] SHADI: 08/12/25 14:[address]: Elroy Brambila DEPT: [facility] Surgical RECD BY: Rylan Case ENTERED: 08/13/25 07:26 SP TYPE: Surgical OTHR DR: Noah Omalley MD Tissues: A - Gastric Biopsy Procedures: Hematoxylin and Eosin Stain Gross and Microscopic Level 4
[2025-08-12 14:14] VITALS: BP 81/44; PULSE 70; RESP 18; O2SAT 95
[2025-08-12 14:24] VITALS: BP 96/42; PULSE 75; RESP 18; O2SAT 97
[2025-08-12 14:32] VITALS: BP 97/63; PULSE 68; RESP 18; O2SAT 98
== END 2025-08-12 14:48 | disposition home or self-care (01) ==
PROVIDERS: PCP Emergency Medicine; Referring Provider Internal Medicine Gastroenterology; Visit Provider Internal Medicine Gastroenterology
PROC: 0DJ08ZZ Inspection of Upper Intestinal Tract, Via Natural or Artificial Opening Endoscopic (ICD-10-PCS; CPT 45378; principal; 2025-08-12 13:30)
DX: K57.30 Diverticulosis of large intestine without perforation or abscess without bleeding (principal); K64.8 Other hemorrhoids; K21.9 Gastro-esophageal reflux disease without esophagitis; E66.9 Obesity, unspecified; Z68.34 Body mass index [BMI] 34.0-34.9, adult
CPT/HCPCS: 45378; 43239; 88305; J1720; J2003; J2704; J7120